=== PATIENT | male | born 1970 | race Caucasian/White ===

== ENCOUNTER → 2016-03-20 | Outpatient (CLI) | payer OTHER | END | disposition home or self-care (01) | LOC: LABWHC1 11:25 | PROVIDERS: ATTEND Psychiatry & Neurology Psychiatry | DX: F31.31 Bipolar disorder, current episode depressed, mild (principal) | CPT/HCPCS: 36415; 80164; 84450; 84460 ==

== ENCOUNTER → 2016-05-29 | Outpatient (CLI) | payer OTHER ==
--- NOTE | 2016-05-29 09:27 | MR ---
EXAMINATION TYPE: MR shoulder RT wo con DATE OF EXAM: 05/29/2016 9:15 AM COMPARISON: NONE HISTORY: rt shoulder pain TECHNIQUE: Multiplanar, multisequence imaging of the right shoulder is performed without contrast. FINDINGS: Rotator Cuff: There is diffuse abnormal signal throughout the anterior fibers of the supraspinatus te ndon extending from the musculotendinous junction to the insertion. Findings are most typical tendino sis with no definite through thickness tear. Acromioclavicular Joint: Hypertrophic change and narrowing of the AC joint. There does appear to be m ass effect and impingement upon the supraspinatus tendon and muscle. Glenohumeral Joint: Joint space appears preserved with no sizable joint effusion. Inferior glenohumer al ligament intact. Labrum: The labrum appears grossly intact given limitation of non-arthrogram study. Biceps Tendon: The long head of biceps is in normal location within bicipital groove. Bone marrow signal: Cystic change involving the head of the humerus likely reactive. Marrow changes a re seen involving the AC joint which also likely reactive and post arthritic. Other: No additional significant abnormality is appreciated. IMPRESSION: 1. Findings are compatible with diffuse tendinosis anterior fibers supraspinatus tendon with no throu gh thickness tear or retraction 2. Impingement secondary to AC joint arthropathy
== END | disposition home or self-care (01) ==
LOC: RADMRIMAIN 08:36
PROVIDERS: ATTEND Orthopaedic Surgery
DX: M12.811 Other specific arthropathies, not elsewhere classified, right shoulder (principal)

== ENCOUNTER → 2016-06-26 | Outpatient (CLI) | payer OTHER ==
[2016-06-26 17:12] LABS: Basophils % (A) 0 %; CH 31.4; CHCM 32.5; Eosinophils % (A) 0 %; HCT 38.3 % (39.0-53.0); HDW 2.13; HGB 12.5 gm/dL (13.0-17.5); Luc # (Auto) 0.13; Luc % (Auto) 2; Lymphocytes # (A) 1.9 k/uL (1.0-4.8); Lymphocytes % (A) 30 %; MCH 31.7 pg (25.0-35.0); MCHC 32.7 g/dL (31.0-37.0); MCV 96.9 fL (80.0-100.0); Mean Platelet Volume 7.2; Monocytes # (A) 0.4 k/uL (0-1.0); Monocytes % (A) 6 %; Neutrophils # (A) 4.1 k/uL (1.3-7.7); Neutrophils % (A) 62 %; RBC 3.95 m/uL (4.30-5.90); RDW 13.4 % (11.5-15.5); WBC 6.6 k/uL (3.8-10.6)
[2016-06-26 17:25] LABS: Potassium 4.4 mmol/L (3.5-5.1)
== END | disposition home or self-care (01) ==
LOC: LABPAT 16:36
PROVIDERS: ATTEND Orthopaedic Surgery
DX: Z01.812 Encounter for preprocedural laboratory examination (principal)
CPT/HCPCS: 80051; 85025

== ENCOUNTER 2016-07-03 06:02 | Day surgery (SDC) | payer OTHER ==
[2016-07-01 11:30] VITALS: BMI 23.7
--- NOTE | 2016-07-02 16:14 | HP ---
DATE OF ADMISSION: 07/03/2016 Yeison Sinha is a 45-year-old patient seen with progressive right shoulder pain. After having treatment options discussed, he elected to proceed with right shoulder arthroscopy. Consent was obtained. His past medical history is depression, osteoarthritis. PAST SURGICAL HISTORY: Noncontributory. DAILY MEDICATIONS: Depakote, Klonopin. ALLERGIES: PENICILLIN. SOCIAL HISTORY: Patient currently smokes cigarettes. PHYSICAL EVALUATION, RIGHT SHOULDER: Flexion 160 degrees. Abduction 150 degrees. External rotation is 50 degrees with pain and discomfort. Tenderness along the anterolateral acromion and rotator cuff insertion. Impingement positive 90 degrees. Positive cross-body adduction sign. Distal neurovascular exam is intact. Radiographs of the right shoulder revealed a type II anterior acromion as well as cystic changes of the tuberosity and acromioclavicular joint osteoarthritis. An MRI of the right shoulder revealed tendinosis, impingement and acromioclavicular joint osteoarthritis. IMPRESSION: Right shoulder impingement with possible rotator cuff tear and acromioclavicular joint osteoarthritis. PLAN: Right shoulder arthroscopy with subacromial decompression, possible arthroscopic rotator cuff repair, probable Mecca procedure and debridement.
[~2016-07-03 06:02] MED LIST: CLINDAMYCIN 900 MG in DEXTROSE 5% IN WATER 50 ML IVPB ONE; DEXAMETHASONE SOD PHOSPHATE 10 MG/ML 1 ML VIAL IV ONE; LACTATED RINGERS 1,000 ML IV SCH; MIDAZOLAM 2 MG/2 ML VIAL IV PRN; ONDANSETRON 4 MG/2 ML VIAL IVP ONE; SCOPOLAMINE 1.5MG/72HR PATCH TRANSDERM ONE
[2016-07-03] MEDS ORDERED: LIDOCAINE 1% 20 ML VIAL (10MG/ML) FOR IV START INTRADERMA ONE (06:52)
[2016-07-03] MEDS ORDERED: ROCURONIUM BROMIDE 10 MG/ML 10 ML VIAL IV ONE (07:28)
[2016-07-03] MEDS ORDERED: fentaNYL (PF) 50 MCG/ML 2 ML AMP ONE (07:28)
[2016-07-03] MEDS ORDERED: GLYCOPYRROLATE 0.2 MG/ML 2 ML VIAL ONE (07:28)
[2016-07-03] MEDS ORDERED: NEOSTIGMINE 1 MG/ML 10 ML VIAL ONE (07:28)
[2016-07-03] MEDS ORDERED: LIDOCAINE 1% INJ 10MG/ML (20 ML MDV) ONE (07:28)
[2016-07-03] MEDS ORDERED: SUCCINYLCHOLINE CHLORIDE 100 MG/5 ML SYR IV ONE (07:28)
[2016-07-03] MEDS ORDERED: HYDROmorphone (PF) 1 MG/ML ONE (07:28)
[2016-07-03] MEDS ORDERED: PROPOFOL 10 MG/ML 20 ML VIAL IV ONE (07:28)
[2016-07-03] MEDS ORDERED: MIDAZOLAM 2 MG/2 ML VIAL ONE (07:28)
[2016-07-03] MEDS ORDERED: BUPIVACAINE (PF) 0.5% 30 ML VIAL SQ ONE (08:05)
[2016-07-03] MEDS ORDERED: LACTATED RINGERS 1,000 ML IV ONE (09:05)
[2016-07-03 09:19] VITALS: TEMP 97.6
[2016-07-03] MEDS ORDERED: KETOROLAC 30 MG/ML 1 ML VIAL IVP ONE (09:27)
[2016-07-03] MEDS: HYDROmorphone 1 MG/ML 1 ML SYRINGE IVP PRN ×4 (09:27→09:40)
--- NOTE | 2016-07-03 09:30 | P.OP ---
Date of Procedure: 07/03/16 Preoperative Diagnosis: Right shoulder impingement Postoperative Diagnosis: 1. Right shoulder rotator cuff tear 2. Right shoulder impingement 3. Right shoulder acromioclavicular joint osteoarthritis 4. Right shoulder partial biceps tendon tear Procedure(s) Performed: 1. Right shoulder arthroscopic rotator cuff repair 2. Right shoulder arthroscopic subacromial decompression 3. Right shoulder arthroscopic Mecca procedure 4. Right shoulder arthroscopic biceps tenotomy Implants: 1-valeris 5.5 anchor Anesthesia: AZAEL, local Surgeon: Reinaldo Macias Call Specialist #1: Peter Stevens Estimated Blood Loss (ml): 10 Pathology: none sent Condition: stable Disposition: PACU Indications for Procedure: 45-year-old patient seen with progressive symptomatic right shoulder pain. After treatment options were discussed he elected to proceed with right shoulder arthroscopy. Consent was obtained. Operative Findings: See description of procedure Description of Procedure: Patient underwent a shoulder block by department of anesthesia. The patient was then taken to the operative suite. The patient underwent a general anesthetic by the department of anesthesia. The patient was placed into a lateral position and secured. There was appropriate padding of the bony prominence. Right shoulder was then prepped and draped in normal sterile orthopedic fashion. We placed the extremity in 10 pounds of longitudinal traction. A posterior incision was now made for a posterior working portal site. The trocar and cannula were inserted into the glenohumeral joint. Arthroscopy was initiated. Spinal needle was now inserted anteriorly, to ascertain the anterior working portal site. An incision was now made in that area, a trocar was inserted followed by a probe. The glenohumeral joint was stable with no osteochondral tears present. The labrum was stable with no osteochondral tears present. There was some fraying of the long head biceps tendon. An arthroscopic biceps tenotomy was performed. Instruments were now removed from glenohumeral joint. Utilizing the posterior working portal site, the trocar and cannula were inserted into the subacromial space. Arthroscopy initiated. I made an incision 2 fingerbreadths lateral to the acromion. I introduced my trocar followed by my ArthroCare ablator. I now began ablating thick subacromial bursal tissue, which exposed the undersurface of the anterior acromion. This was diminished subacromial space. There was a very prominent anterior acromion. A motorized bur was introduced and a subacromial decompression was performed. I also excised some osteophytes off the inferior aspect of the distal clavicle. The AC joint was visualized and noted to be fairly arthritic. Our motorized bur was introduced in the anterior portal site and a Mecca procedure was performed without difficulty, decompressing the AC joint nicely. I turned my attention to the rotator cuff. There was a small tear measuring about 1 cm anterior aspect distal supraspinatus. The tissue was debrided down to stable tissue. The footprint was abraded with a motorized bur. 2 everted mattress sutures were then introduced with good bites of rotator cuff tendon. I repaired the tendon back to the footprint with one single 5.5 anchor. The residual suture limbs were clipped. The repair was stable. I injected 1 mL of Allogen into the footprint/repair site without difficulty. Instruments were now removed from the portal sites. All portal sites were approximated with nylon suture. Subacromial space was infiltrated with half percent plain Marcaine. Sterile dressings were applied followed by a slingshot immobilizer. Fredy RICO assisted with the procedure. The patient was awakened, transferred to a bed, and taken to recovery in stable condition.
[2016-07-03] MEDS ORDERED: traMADol 50 MG TAB PO ONE ×2 (10:25)
[2016-07-03 11:17] VITALS: RESP 18
[2016-07-03 12:21] VITALS: BP 105/62; PULSE 60
== END 2016-07-03 12:04 | disposition home or self-care (01) ==
LOC: OR 06:02
PROVIDERS: ATTEND Orthopaedic Surgery
DX: M75.101 Unspecified rotator cuff tear or rupture of right shoulder, not specified as traumatic (principal); M75.41 Impingement syndrome of right shoulder; M19.011 Primary osteoarthritis, right shoulder; S46.111A Strain of muscle, fascia and tendon of long head of biceps, right arm, initial encounter; X58.XXXA Exposure to other specified factors, initial encounter; M25.711 Osteophyte, right shoulder
CPT/HCPCS: 29826; 29827; 29824; 20610; C1765; J2250; J1100; J2710; J2405; J2001; J3010; J1885; J1170; J0330; J2704

== ENCOUNTER 2018-02-20 11:40 | Observation (INO) | payer OTHER ==
--- NOTE | 2018-02-20 12:19 | ED ---
General Adult HPI - General Chief complaint: Neuro Symptoms/Deficit Stated complaint: Left side numbness/tingling Time Seen by Provider: 02/20/18 11:56 Source: patient, RN notes reviewed Mode of arrival: ambulatory Limitations: no limitations - History of Present Illness Initial comments: Patient is a pleasant 47-year-old male presenting to the emergency Department with left-sided arm and trunk paresthesias. Onset of symptoms was 3 days ago. Symptoms have slowly progressed since that time. Patient states his left arm may be slightly heavy. Patient did have a fall and landed on his left elbow around 1 week ago. Patient still has some discomfort of the left elbow. No headache. Patient has some mild indigestion in his chest however this is a chronic and unchanged problem. No dyspnea. No confusion. No street drugs. No leg involvement. No facial involvement. - Related Data Home Medications Medication Instructions Recorded Confirmed Albuterol Inhaler [Ventolin Hfa 1 - 2 puff INHALATION RT-Q6H PRN 07/01/16 Inhaler] Budesonide-Formot 160-4.5 Mcg 2 puff INHALATION RT-DAILY 07/01/16 02/20/18 [Symbicort 160-4.5 Mcg Inhaler] Divalproex [Depakote] 500 mg PO TID 07/01/16 02/20/18 Omeprazole 20 mg PO DAILY 07/01/16 02/20/18 clonazePAM [KlonoPIN] 1 mg PO QID 07/01/16 02/20/18 QUEtiapine [SEROquel] 25 mg PO BID 02/20/18 02/20/18 QUEtiapine [SEROquel] 100 mg PO HS 02/20/18 02/20/18 Allergies Allergy/AdvReac Type Severity Reaction Status Date / Time morphine Allergy Itching Verified 02/20/18 12:36 Penicillins Allergy Anaphylaxis Verified 02/20/18 12:36 acetaminophen [From [place]] AdvReac Unknown Verified 02/20/18 12:36 aspirin AdvReac Vomiting Verified 02/20/18 12:36 hydrocodone [From [place]] AdvReac Unknown Verified 02/20/18 12:36 ibuprofen AdvReac Unknown Verified 02/20/18 12:36 Review of Systems ROS Statement: Those systems with pertinent positive or pertinent negative responses have been documented in the HPI. ROS Other: All systems not noted in ROS Statement are negative. Constitutional: Denies: fever Eyes: Denies: eye pain ENT: Denies: ear pain Respiratory: Denies: cough, dyspnea Cardiovascular: Reports: as per HPI Endocrine: Denies: fatigue Gastrointestinal: Denies: abdominal pain Genitourinary: Denies: dysuria Musculoskeletal: Denies: back pain Skin: Denies: rash Neurological: Reports: paresthesias. Denies: headache, confusion Past Medical History Past Medical History: COPD History of Any Multi-Drug Resistant Organisms: None Reported Past Surgical History: Orthopedic Surgery Past Psychological History: Panic Disorder Smoking Status: Current every day smoker Past Alcohol Use History: Rare Past Drug Use History: Marijuana General Exam Limitations: no limitations General appearance: alert, in no apparent distress Head exam: Present: atraumatic Eye exam: Present: normal appearance, PERRL, EOMI. Absent: nystagmus ENT exam: Present: normal oropharynx Neck exam: Present: normal inspection Respiratory exam: Present: normal lung sounds bilaterally Cardiovascular Exam: Present: regular rate, normal rhythm GI/Abdominal exam: Present: soft. Absent: tenderness Extremities exam: Present: tenderness (Mild tenderness left elbow, olecranon process). Absent: pedal edema, calf tenderness Neurological exam: Present: alert, CN II-XII intact Expanded Neurological exam: Present: protecting the airway Speech: Present: fluid speech Cranial nerves: EOM's Intact: Normal, Facial Sensation: Normal Cerebellar function: Finger to Nose: Abnormal Left (Patient is off somewhat with left-sided.Test) Sensory exam: Lower Extremity Light Touch: Normal Motor strength exam: RUE: 5, LUE: 4, RLE: 5, LLE: 5 Eye Response: (4) open spontaneously Motor Response: (6) obeys commands Verbal Response: (5) oriented Psychiatric exam: Present: normal affect, normal mood Skin exam: Present: normal color Course Vital Signs 02/20/18 11:50 Temperature 98.1 F Pulse Rate 73 Respiratory 18 Rate Blood Pressure 117/77 O2 Sat by Pulse 98 Oximetry EKG Findings - EKG Comments: EKG Findings:: Normal sinus rhythm at 66. AR 194. QRS 86. QT 362. QTC 379. Left axis. Normal QRS. No acute ST change. Medical Decision Making - Medical Decision Making Patient reevaluated and updated. Case discussed with Dr. Tovar, who will admit for Dr. Contreras. - Lab Data Result diagrams: 02/20/18 12:25 02/20/18 12:25 Lab Results 02/20/18 02/20/18 02/20/18 Range/Units 12:25 12:25 12:25 WBC 9.3 (3.8-10.6) k/uL RBC 4.93 (4.30-5.90) m/uL Hgb 14.6 (13.0-17.5) gm/dL Hct 44.8 (39.0-53.0) % MCV 90.9 (80.0-100.0) fL MCH 29.6 (25.0-35.0) pg MCHC 32.5 (31.0-37.0) g/dL RDW 13.2 (11.5-15.5) % Plt Count 203 (150-450) k/uL Neutrophils % 72 % Lymphocytes % 21 % Monocytes % 5 % Eosinophils % 1 % Basophils % 1 % Neutrophils # 6.7 (1.3-7.7) k/uL Lymphocytes # 1.9 (1.0-4.8) k/uL Monocytes # 0.5 (0-1.0) k/uL Eosinophils # 0.1 (0-0.7) k/uL Basophils # 0.1 (0-0.2) k/uL PT (9.0-12.0) sec INR (<1.2) APTT (22.0-30.0) sec Sodium 141 (137-145) mmol/L Potassium 4.7 (3.5-5.1) mmol/L Chloride 109 H (98-107) mmol/L Carbon Dioxide 23 (22-30) mmol/L Anion Gap 9 mmol/L BUN 16 (9-20) mg/dL Creatinine 0.77 (0.66-1.25) mg/dL Est GFR (CKD-EPI)AfAm >90 (>60 ml/min/1.73 sqM) Est GFR (CKD-EPI)NonAf >90 (>60 ml/min/1.73 sqM) Glucose 98 (74-99) mg/dL Calcium 9.4 (8.4-10.2) mg/dL Total Bilirubin 0.4 (0.2-1.3) mg/dL AST 19 (17-59) U/L ALT 13 L (21-72) U/L Alkaline Phosphatase 63 (38-126) U/L Total Creatine Kinase 74 (55-170) U/L CK-MB (CK-2) 0.5 (0.0-2.4) ng/mL CK-MB (CK-2) Rel Index 0.7 Troponin I <0.012 (0.000-0.034) ng/mL Total Protein 7.1 (6.3-8.2) g/dL Albumin 4.3 (3.5-5.0) g/dL 02/20/18 Range/Units 12:25 WBC (3.8-10.6) k/uL RBC (4.30-5.90) m/uL Hgb (13.0-17.5) gm/dL Hct (39.0-53.0) % MCV (80.0-100.0) fL MCH (25.0-35.0) pg MCHC (31.0-37.0) g/dL RDW (11.5-15.5) % Plt Count (150-450) k/uL Neutrophils % % Lymphocytes % % Monocytes % % Eosinophils % % Basophils % % Neutrophils # (1.3-7.7) k/uL Lymphocytes # (1.0-4.8) k/uL Monocytes # (0-1.0) k/uL Eosinophils # (0-0.7) k/uL Basophils # (0-0.2) k/uL PT 10.0 (9.0-12.0) sec INR 0.9 (<1.2) APTT 26.0 (22.0-30.0) sec Sodium (137-145) mmol/L Potassium (3.5-5.1) mmol/L Chloride (98-107) mmol/L Carbon Dioxide (22-30) mmol/L Anion Gap mmol/L BUN (9-20) mg/dL Creatinine (0.66-1.25) mg/dL Est GFR (CKD-EPI)AfAm (>60 ml/min/1.73 sqM) Est GFR (CKD-EPI)NonAf (>60 ml/min/1.73 sqM) Glucose (74-99) mg/dL Calcium (8.4-10.2) mg/dL Total Bilirubin (0.2-1.3) mg/dL AST (17-59) U/L ALT (21-72) U/L Alkaline Phosphatase (38-126) U/L Total Creatine Kinase (55-170) U/L CK-MB (CK-2) (0.0-2.4) ng/mL CK-MB (CK-2) Rel Index Troponin I (0.000-0.034) ng/mL Total Protein (6.3-8.2) g/dL Albumin (3.5-5.0) g/dL - Radiology Data Radiology results: report reviewed (Computed tomography scan of the brain reveals no acute abnormality), image reviewed (Elbow x-ray and chest x-ray show no acute abnormality.) Disposition Clinical Impression: Cerebrovascular accident Disposition: ADMITTED IP TO THIS HOSP Is patient prescribed a controlled substance at d/c from ED?: No Referrals: Cesar Contreras MD [Primary Care Provider] - 1-2 days Decision Time: 14:21
[2018-02-20 12:56] LABS: Basophils # (A) 0.1 k/uL (0-0.2); Basophils % (A) 1 %; Eosinophils # (A) 0.1 k/uL (0-0.7); Eosinophils % (A) 1 %; HCT 44.8 % (39.0-53.0); HGB 14.6 gm/dL (13.0-17.5); Lymphocytes # (A) 1.9 k/uL (1.0-4.8); Lymphocytes % (A) 21 %; MCH 29.6 pg (25.0-35.0); MCHC 32.5 g/dL (31.0-37.0); MCV 90.9 fL (80.0-100.0); Monocytes # (A) 0.5 k/uL (0-1.0); Monocytes % (A) 5 %; Neutrophils # (A) 6.7 k/uL (1.3-7.7); Neutrophils % (A) 72 %; Platelet Count 203 k/uL (150-450); RBC 4.93 m/uL (4.30-5.90); RDW 13.2 % (11.5-15.5); WBC 9.3 k/uL (3.8-10.6)
[2018-02-20 13:01] LABS: INR 0.9 (<1.2)
[2018-02-20 13:12] LABS: Creatine Kinase 74 U/L (55-170)
[2018-02-20 13:14] LABS: ALT 13 U/L (21-72); AST 19 U/L (17-59); Albumin 4.3 g/dL (3.5-5.0); Alkaline Phosphatase 63 U/L (38-126); Anion Gap 9 mmol/L; Blood Urea Nitrogen 16 mg/dL (9-20); Calcium 9.4 mg/dL (8.4-10.2); Carbon Dioxide 23 mmol/L (22-30); Chloride 109 mmol/L (98-107); Glucose 98 mg/dL (74-99); Potassium 4.7 mmol/L (3.5-5.1); Sodium 141 mmol/L (137-145); Total Bilirubin 0.4 mg/dL (0.2-1.3); Total Protein 7.1 g/dL (6.3-8.2)
--- NOTE | 2018-02-20 13:21 | XR ---
EXAMINATION TYPE: XR elbow complete LT DATE OF EXAM: 02/20/2018 COMPARISON: None HISTORY: Pain left-sided numbness TECHNIQUE: Three-view left elbow FINDINGS: There is a catheter at the antecubital fossa. Radius aligns normally with the humerus. Anterior fat pad is normal. No elevation of posterior fat pa d is evident. No acute fractures are evident. Follow-up study can be performed 7-10 days from acute trauma for continued pain. IMPRESSION: 1. Normal three-view left elbow
--- NOTE | 2018-02-20 13:22 | XR ---
EXAMINATION TYPE: XR chest 2V DATE OF EXAM: 02/20/2018 COMPARISON: None INDICATION: COPD left-sided numbness TECHNIQUE: Frontal and lateral views of the chest are obtained. FINDINGS: The heart size is normal. The pulmonary vasculature is normal. The lungs are clear. IMPRESSION: 1. No acute pulmonary process.
--- NOTE | 2018-02-20 13:23 | CT ---
EXAMINATION TYPE: CT brain wo con DATE OF EXAM: 02/20/2018 COMPARISON: Prior brain MRI 06/30/2015 HISTORY: Lt sided numbness and weakness CT DLP: 1028.4 mGycm. Automated Exposure Control for Dose Reduction was Utilized. TECHNIQUE: CT scan of the head is performed without contrast. FINDINGS: There is no acute intracranial hemorrhage, mass effect, or midline shift identified. The ventricles and sulci are within normal limits in size. The globes are intact and the visualized sin uses are clear. Asymmetric appearance of the lateral ventricles is likely congenital and is stable. IMPRESSION: No acute intracranial hemorrhage, mass effect, or midline shift is seen.
[2018-02-20 13:24] LABS: Creatine Kinase MB 0.5 ng/mL (0.0-2.4); Troponin I <0.012 ng/mL (0.000-0.034)
[2018-02-20] MEDS ORDERED: ASPIRIN 325 MG TAB PO STA (14:21)
[2018-02-20] MEDS: SODIUM CHLORIDE 0.9% 1,000 ML IV SCH (15:12)
[2018-02-20] MEDS ORDERED: ALBUTEROL NEBULIZED 2.5 MG/3 ML INHALATION PRN (16:07)
[2018-02-20] MEDS ORDERED: NICOTINE 21MG/24HR PATCH TRANSDERM STA (16:23)
[2018-02-20 16:31] VITALS: RESP 16
--- NOTE | 2018-02-20 16:42 | P.HPIM ---
History of Present Illness H&P Date: 02/20/18 Chief Complaint: left arm numbness This is a 47-year-old male one of Dr. Contreras with a previous medical history significant for chronic drug use and dependence with COPD, history of the panic disorder, bipolar disorder, personality disorder mixed patient presented to the emergency department at [facility] today because of 5- day history of left arm numbness as well as heaviness including left side of the neck as well as left side of the chest and according to him he is feeling now in the groin all the way down to the left leg that started about 5 days ago, and has gotten progressively worse over the last 24 hours he ended up coming to the ER had a computed tomography scan of the brain that was negative for acute stroke however because of the presentation and because of heavy cigarette smoking he was admitted to hospital for evaluation for acute stroke, patient stated that he had a fall about a week ago on his elbow and is still having some pain in his left elbow. Patient denies any blurred vision, dysphagia, he denies any muscle twitches, had no seizure, he denies any other symptoms. Review of Systems Constitutional: Denies anorexia, Denies chills, Denies lethargy, Denies weakness Eyes: denies blurred vision, denies bulging eye, denies decreased vision Ears: deny: decreased hearing Ears, nose, mouth and throat: Denies dysphagia, Denies neck lump, Denies sore throat Cardiovascular: Denies chest pain, Denies decreased exercise tolerance, Denies dyspnea on exertion, Denies high blood pressure, Denies phlebitis, Denies rapid heart beat, Denies shortness of breath, Denies syncope Respiratory: Denies congestion, Denies cough with sputum, Denies home oxygen, Denies sleep apnea, Denies snoring, Denies wheezing Gastrointestinal: Denies abdominal pain, Denies BRBPR, Denies excessive gas, Denies melena, Denies nausea, Denies vomiting Genitourinary: Denies dysuria Musculoskeletal: Denies atrophy, Denies fractures, Denies morning stiffness, Denies prior amputations Musculoskeletal: absent: ankle pain, ankle stiffness, ankle swelling, elbow pain , elbow stiffness, elbow swelling, foot pain, foot stiffness, foot swelling, hand pain, hand stiffness, hand swelling, hip pain, hip stiffness, hip swelling , knee pain, knee stiffness, knee swelling, shoulder pain, shoulder stiffness, shoulder swelling, wrist pain, wrist stiffness, wrist swelling Integumentary: Denies pruritus, Denies rash Neurological: Reports numbness, Reports weakness Psychiatric: Reports anxiety, Denies depression, Denies memory loss, Denies mood swings, Denies paranoia, Denies sadness/tearfulness, Denies sleep disturbances, Denies suicidal ideation Endocrine: Denies fatigue, Denies weight change Past Medical History Past Medical History: COPD, GERD/Reflux, GI Bleed, Osteoarthritis (OA) Additional Past Medical History / Comment(s): 02/20/18 pt wants flu/pne vaccine while here. ulcers, insomnia. past colon polyps-pbenign, kidney stones, "tremors", "when yonger had an irreg heart beat" history of bipolar disorder, panic disorder, personality disorder. History of Any Multi-Drug Resistant Organisms: None Reported Past Surgical History: Orthopedic Surgery Additional Past Surgical History / Comment(s): egd/colonosocpy, rt shoulder sx, rt x6 arthroscopic sx, lt knee 3 arthrosocopic sx, rt hand reconstruction, bronchoscopy Past Anesthesia/Blood Transfusion Reactions: No Reported Reaction Additional Past Anesthesia/Blood Transfusion Reaction / Comment(s): clausterphobia Smoking Status: Current every day smoker (patient smoked about a pack and half a day he started when he was in his teens he denies any congestion he smokes Marijuana on a daily basis.) - Past Family History Father Family Medical History: Coronary Artery Disease (CAD) (father 65-year-old has history of CAD post [place] and permanent pacemaker placement as well as TIA.) Additional Family Medical History / Comment(s): heart problems and pacemaker/ aicd Mother Family Medical History: No Reported History (mother 65-year-old has no major medical problems.) Additional Family Medical History / Comment(s): heart problems Sister(s) Family Medical History: No Reported History (patient has one sister major medical problems.) Daughter(s) Family Medical History: No Reported History (patient has 2 daughters no major medical problems) Son(s) Family Medical History: No Reported History (patient has 2 sons no major medical problems) Medications and Allergies Home Medications Medication Instructions Recorded Confirmed Type Albuterol Inhaler [Ventolin Hfa 1 - 2 puff INHALATION RT-Q6H PRN 07/01/16 History Inhaler] Budesonide-Formot 160-4.5 Mcg 2 puff INHALATION RT-DAILY 07/01/16 02/20/18 History [Symbicort 160-4.5 Mcg Inhaler] Divalproex [Depakote] 500 mg PO TID 07/01/16 02/20/18 History Omeprazole 20 mg PO DAILY 07/01/16 02/20/18 History clonazePAM [KlonoPIN] 1 mg PO QID 07/01/16 02/20/18 History QUEtiapine [SEROquel] 25 mg PO BID 02/20/18 02/20/18 History QUEtiapine [SEROquel] 100 mg PO HS 02/20/18 02/20/18 History Allergies Allergy/AdvReac Type Severity Reaction Status Date / Time morphine Allergy Itching Verified 02/20/18 12:36 Penicillins Allergy Anaphylaxis Verified 02/20/18 12:36 acetaminophen [From [place]] AdvReac Unknown Verified 02/20/18 12:36 aspirin AdvReac Vomiting Verified 02/20/18 12:36 hydrocodone [From [place]] AdvReac Unknown Verified 02/20/18 12:36 ibuprofen AdvReac Unknown Verified 02/20/18 12:36 Physical Exam Vitals: Vital Signs Temp Pulse Resp BP Pulse Ox 02/20/18 14:00 90 18 110/72 92 L 02/20/18 13:00 87 18 110/72 96 02/20/18 11:50 98.1 F 73 18 117/77 98 Intake and Output 02/20/18 02/20/18 02/20/18 06:59 14:59 22:59 Other: Weight 74.389 kg - Constitutional General appearance: average body habitus, no acute distress - EENT Eyes: anicteric sclerae, EOMI, PERRLA, no ptosis, no scleral icterus, normal appearance ENT: hearing grossly normal, NA/AT, normal oropharynx Ears: bilateral: normal - Neck Neck: no lymphadenopathy, normal ROM, no rigidity, no stridor, no thyromegaly Carotids: bilateral: upstroke normal Thyroid: bilateral: normal size - Respiratory Respiratory: bilateral: diminished, prolonged expiration, negative: dullness, rales, rhonchi, wheezing - Cardiovascular Rhythm: regular Heart sounds: normal: S1, S2 Abnormal Heart Sounds: no systolic murmur, no S3 Gallop, no S4 Gallop - Gastrointestinal General gastrointestinal: normal bowel sounds, soft, no splenomegaly, no tenderness, no umbilical hernia, no ventral hernia - Integumentary Integumentary: normal, normal turgor - Neurologic Neurologic: CNII-XII intact, focal deficits (mild [id number] sign in the left along with mild left pronator drift.) - Psychiatric Psychiatric: A&O x's 3, appropriate affect, intact judgment & insight Results CBC & Chem 7: 02/20/18 12:25 02/20/18 12:25 Labs: Abnormal Lab Results - Last 24 Hours (Table) 02/20/18 Range/Units 12:25 Chloride 109 H (98-107) mmol/L ALT 13 L (21-72) U/L Thrombosis Risk Factor Assmnt - DVT/VTE Prophylaxis DVT/VTE Prophylaxis: Pharmacologic Prophylaxis ordered, Mechanical Prophylaxis ordered Assessment and Plan Assessment: Assessment and plan: 1. Left upper extremity numbness and mild weakness suggestive of possible ischemic CVA. Rule out radial traumatic neuropathy, rule out cervical spine myelopathy. Due to recent fall. I would continue the patient on aspirin 325 mg orally once every day, ultrasound of the carotids, echocadiogram, neuro check every 2 hours for the next 24 hours, we will obtain MRI of the brain with and without gadolinium, neurology consultation. Patient will need to have a cervical spine x-ray and possible CT of the cervical spine for further evaluation. 2. Chronic tobacco use and dependence. Smoking cessation and counseling an increased risk of CVA, CAD and malignancy. Start the patient on nicotine patch. 3. COPD. Continue patient on albuterol 2 puffs inhalation every 4 hours as needed, continue Symbicort 160/4.5 g 2 puffs inhalation twice every day. 4. GERD. Continue patient on omeprazole 20 mg orally once every day. 5. Anxiety and panic disorder with personality disorder and bipolar disorder. Continue patient on Klonopin 1 mg orally 4 times every day, continue Depakote 500 mg orally twice every day, continue with Seroquel 25 mg twice every day and 100 g of the time. 6. DVT prophylaxis. Bilateral knee-high STANLEY hose. 7. GI prophylaxis. Continue patient on PPI. 8. Admit to inpatient. Estimated length of stay 2 midnights. 9. Patient is full code.
--- NOTE | 2018-02-20 17:25 | ECHOF ---
Referral Reason:Thrombus MEASUREMENTS -------- HEIGHT: 182.9 cm WEIGHT: 74.4 kg BP: 117/77 RVIDd: 2.5 cm (< 3.3) IVSd: 1.1 cm (0.6 - 1.1) LVIDd: 4.4 cm (3.9 - 5.3) LVPWd: 1.1 cm (0.6 - 1.1) IVSs: 1.5 cm LVIDs: 3.2 cm LVPWs: 1.6 cm LA Diam: 3.4 cm (2.7 - 3.8) LAESV Index (A-L): 26.89 ml/m Ao Diam: 3.2 cm (2.0 - 3.7) AV Cusp: 2.5 cm (1.5 - 2.6) EPSS: 0.2 cm MV E Ehsan: 0.70 m/s MV DecT: 236 ms MV A Ehsan: 0.39 m/s MV E/A Ratio: 1.81 RAP: 5.00 mmHg RVSP: 23.03 mmHg MV EF SLOPE: 180.43 mm/s (70 - 150) MV EXCURSION: 2.47 cm (> 18.000) FINDINGS -------- Sinus rhythm. This was a technically good study. The left ventricular size is normal. There is borderline concentric left ventricular hypertrophy. Overall left ventricular systolic function is normal with, an EF between 55 - 60 %. The right ventricle is normal in size. Normal LA size by volume 22+/-6 ml/m2. The right atrial size is normal. The aortic valve is trileaflet, and appears structurally normal. No aortic stenosis or regurgitation. The mitral valve is normal. There is trace to mild mitral regurgitation. Mild tricuspid regurgitation present. Right ventricular systolic pressure is normal at < 35 mmHg. The right ventricular systolic pressure, as measured by Doppler, is 23.03mmHg. There is no pulmonic regurgitation present. The aortic root size is normal. Normal inferior vena cava with normal inspiratory collapse consistent with estimated right atrial pre ssure of 5 mmHg. There is no pericardial effusion. CONCLUSIONS -------- 1. Sinus rhythm. 2. This was a technically good study. 3. The left ventricular size is normal. 4. There is borderline concentric left ventricular hypertrophy. 5. Overall left ventricular systolic function is normal with, an EF between 55 - 60 %. 6. Normal LA size by volume 22+/-6 ml/m2. 7. The aortic valve is trileaflet, and appears structurally normal. No aortic stenosis or regurgitati on. 8. There is trace to mild mitral regurgitation. 9. Mild tricuspid regurgitation present. 10. Right ventricular systolic pressure is normal at < 35 mmHg. 11. There is no pulmonic regurgitation present. 12. The aortic root size is normal. 13. Normal inferior vena cava with normal inspiratory collapse consistent with estimated right atrial pressure of 5 mmHg. 14. There is no pericardial effusion. [employer]: PATRICE Velázquez
[2018-02-20] MEDS: clonazePAM 1 MG TAB PO SCH ×2 (17:55→20:34)
[2018-02-20] MEDS: QUEtiapine 100 MG TAB PO SCH (20:34)
[2018-02-20] MEDS: QUEtiapine 25 MG TAB PO SCH (20:34)
[2018-02-20] MEDS: DIVALPROEX 500 MG TABLET.DR PO SCH (20:35)
[2018-02-20] MEDS: LORazepam 2 MG/ML INJ IV PRN (21:03)
--- NOTE | 2018-02-20 22:30 | MR ---
EXAMINATION TYPE: MR brain wo/w con DATE OF EXAM: 02/20/2018 COMPARISON: 06/30/2015 HISTORY: Left sided numbness and weakness, gadavist 7.5 TECHNIQUE: Multiplanar, multisequence images of the brain and brainstem is performed without and with IV contras t, utilizing 7.5 mL intravenous Gadavist . FINDINGS: There is a 5 mm focus of increased signal at the denny-white matter junction left anterior p arietal lobe on the T2 and FLAIR images. I see no evidence of a cortical infarct. The brainstem is in tact. There is no mass effect nor midline shift. There is no sign of intracranial hemorrhage. The cor pus callosum appears fairly normal. Sella turcica appears normal. There is no pathologic enhancement. There is normal contrast opacification of the venous sinuses. IMPRESSION: Single left parietal white matter high signal focus is increased compared to last MR scan . Otherwise negative exam. No evidence of cortical infarct.
[2018-02-21] MEDS: LORazepam 2 MG/ML INJ IV PRN (02:30)
[2018-02-21] MEDS: SODIUM CHLORIDE 0.9% 1,000 ML IV SCH ×4 (04:30→23:21)
[2018-02-21 06:39] LABS: Basophils # (A) 0.1 k/uL (0-0.2); Basophils % (A) 1 %; Eosinophils # (A) 0.1 k/uL (0-0.7); Eosinophils % (A) 1 %; HCT 41.2 % (39.0-53.0); Lymphocytes # (A) 3.2 k/uL (1.0-4.8); Lymphocytes % (A) 47 %; MCH 28.8 pg (25.0-35.0); MCHC 31.4 g/dL (31.0-37.0); MCV 91.6 fL (80.0-100.0); Mean Platelet Volume 7.6; Monocytes # (A) 0.4 k/uL (0-1.0); Monocytes % (A) 5 %; Neutrophils # (A) 2.9 k/uL (1.3-7.7); Neutrophils % (A) 43 %; Platelet Count 189 k/uL (150-450); RDW 13.1 % (11.5-15.5); WBC 6.8 k/uL (3.8-10.6)
[2018-02-21] MEDS: PANTOPRAZOLE 40 MG TABLET PO SCH (06:46)
[2018-02-21 06:54] LABS: ALT 19 U/L (21-72); AST 14 U/L (17-59); Albumin 3.6 g/dL (3.5-5.0); Alkaline Phosphatase 70 U/L (38-126); Anion Gap 8 mmol/L; Blood Urea Nitrogen 18 mg/dL (9-20); Calcium 8.6 mg/dL (8.4-10.2); Carbon Dioxide 22 mmol/L (22-30); Chloride 110 mmol/L (98-107); Cholesterol 149 mg/dL (<200); HDL Cholesterol 42 mg/dL (40-60); LDL Cholesterol,Calculated 92 mg/dL (0-99); Potassium 4.4 mmol/L (3.5-5.1); Sodium 140 mmol/L (137-145); Total Bilirubin 0.2 mg/dL (0.2-1.3); Total Protein 6.1 g/dL (6.3-8.2); Triglycerides 76 mg/dL (<150)
[2018-02-21 07:10] LABS: Glucose 93 mg/dL (74-99)
[2018-02-21] MEDS: QUEtiapine 25 MG TAB PO SCH (08:12)
[2018-02-21] MEDS: ASPIRIN 325 MG TAB PO SCH (08:12)
[2018-02-21] MEDS: NICOTINE 21MG/24HR PATCH TRANSDERM SCH (08:12)
[2018-02-21] MEDS: clonazePAM 1 MG TAB PO SCH ×4 (08:12→20:10)
[2018-02-21] MEDS: DIVALPROEX 500 MG TABLET.DR PO SCH ×3 (08:12→20:10)
--- NOTE | 2018-02-21 09:29 | US ---
EXAMINATION TYPE: US carotid duplex BILAT DATE OF EXAM: 02/21/2018 COMPARISON: NONE CLINICAL HISTORY: Stenosis. EXAM MEASUREMENTS: RIGHT: Peak Systolic Velocity (PSV) cm/sec ----- Right CCA: 100.2 ----- Right ICA: 79.8 ----- Right ECA: 113.2 ICA/CCA ratio: 0.8 RIGHT: End Diastole cm/sec ----- Right CCA: 27.5 ----- Right ICA: 27.5 ----- Right ECA: 30.4 LEFT: Peak Systolic Velocity (PSV) cm/sec ----- Left CCA: 99.5 ----- Left ICA: 98.4 ----- Left ECA: 100.0 ICA/CCA ratio: 1.0 LEFT: End Diastole cm/sec ----- Left CCA: 26.8 ----- Left ICA: 16.0 ----- Left ECA: 27.3 VERTEBRALS (direction of flow): Right Vertebral: Antegrade Left Vertebral: Antegrade Rhythm: Normal No elevated velocities. Mild atherosclerotic changes bilaterally. IMPRESSION: I DO NOT SEE EVIDENCE OF A HEMODYNAMICALLY SIGNIFICANT STENOSIS IN EITHER CAROTID SYSTEM. Criteria for Assigning % of Stenosis / Diameter reduction (Estimation based on the indirect measurements of the internal carotid artery velocities (ICA PSV). 1. Normal (no stenosis)=ICA PSV < 125 cm/s: ratio < 2.0: ICA EDV<40 cm/s. 2. Less than 50% stenosis=ICA PSV < 125 cm/s: ratio < 2.0: ICA EDV<40 cm/s. 3. 50 to 69% stenosis=ICA PSV of 125 to 230 cm/s: ration 2.0 ? 4.0: ICA EDV 40-100 cm/s. 4. Greater than 70% stenosis to near occlusion= ICA PSV > 230 cm/s: ratio > 4.0: ICA EDV > 100 cm/s. 5. Near occlusion= ICA PSV velocities may be low or undetectable: variable ratio and ICA EDV. 6. Total occlusion=unable to detect flow.
[2018-02-21] MEDS: SYMBICORT 160-4.5 MCG INHALER INHALATION SCH (09:30)
--- NOTE | 2018-02-21 14:53 | P.CONS ---
History of Present Illness - Reason for Consult Consult date: 02/21/18 Left-sided numbness - Chief Complaint Left-sided numbness - History of Present Illness This 47-year-old male being evaluated by the neurology service for left-sided numbness. He came to the [facility] emergency room with a 5 day history of progressive left-sided numbness starting with his left arm and face. He progressed to the chest and left leg. Initial CT of the brain showed no acute intracranial abnormalities. MRI of the brain showed no acute intracranial abnormalities. It did show 1 single white matter lesion in the left parietal area which would not can attribute to his symptoms. Of note the white matter lesion seem to have increased in size from on MRI 2 years ago. Carotid Doppler showed no hemodynamically significant stenosis. He denies recent trauma or illness. It's time my exam he is resting comfortably in bed in no acute distress. Review of Systems All systems: negative Constitutional: Reports as per HPI Past Medical History Past Medical History: COPD, GERD/Reflux, GI Bleed, Osteoarthritis (OA) Additional Past Medical History / Comment(s): 02/20/18 pt wants flu/pne vaccine while here. ulcers, insomnia. past colon polyps-pbenign, kidney stones, "tremors", "when yonger had an irreg heart beat" history of bipolar disorder, panic disorder, personality disorder. History of Any Multi-Drug Resistant Organisms: None Reported Past Surgical History: Orthopedic Surgery Additional Past Surgical History / Comment(s): egd/colonosocpy, rt shoulder sx, rt x6 arthroscopic sx, lt knee 3 arthrosocopic sx, rt hand reconstruction, bronchoscopy Past Anesthesia/Blood Transfusion Reactions: No Reported Reaction Additional Past Anesthesia/Blood Transfusion Reaction / Comm: clausterphobia Smoking Status: Current every day smoker (patient smoked about a pack and half a day he started when he was in his teens he denies any congestion he smokes Marijuana on a daily basis.) - Past Family History Father Family Medical History: Coronary Artery Disease (CAD) (father 65-year-old has history of CAD post NM and permanent pacemaker placement as well as TIA.) Additional Family Medical History / Comment(s): heart problems and pacemaker/ aicd Mother Family Medical History: No Reported History (mother 65-year-old has no major medical problems.) Additional Family Medical History / Comment(s): heart problems Sister(s) Family Medical History: No Reported History (patient has one sister major medical problems.) Daughter(s) Family Medical History: No Reported History (patient has 2 daughters no major medical problems) Son(s) Family Medical History: No Reported History (patient has 2 sons no major medical problems) Medications and Allergies Home Medications Medication Instructions Recorded Confirmed Type Albuterol Inhaler [Ventolin Hfa 1 - 2 puff INHALATION RT-Q6H PRN 07/01/16 History Inhaler] Budesonide-Formot 160-4.5 Mcg 2 puff INHALATION RT-DAILY 07/01/16 02/20/18 History [Symbicort 160-4.5 Mcg Inhaler] Divalproex [Depakote] 500 mg PO TID 07/01/16 02/20/18 History Omeprazole 20 mg PO DAILY 07/01/16 02/20/18 History clonazePAM [KlonoPIN] 1 mg PO QID 07/01/16 02/20/18 History QUEtiapine [SEROquel] 25 mg PO BID 02/20/18 02/20/18 History QUEtiapine [SEROquel] 100 mg PO HS 02/20/18 02/20/18 History Allergies Allergy/AdvReac Type Severity Reaction Status Date / Time morphine Allergy Itching Verified 02/20/18 12:36 Penicillins Allergy Anaphylaxis Verified 02/20/18 12:36 acetaminophen [From [place]] AdvReac Unknown Verified 02/20/18 12:36 aspirin AdvReac Vomiting Verified 02/20/18 12:36 hydrocodone [From [place]] AdvReac Unknown Verified 02/20/18 12:36 ibuprofen AdvReac Unknown Verified 02/20/18 12:36 Physical Exam Vitals: Vital Signs Temp Pulse Resp BP Pulse Ox 02/21/18 12:00 98.2 F 63 16 110/71 97 02/21/18 08:00 68 16 02/21/18 07:59 97.6 F 68 16 107/68 95 02/21/18 04:00 98.4 F 90 16 111/59 96 02/21/18 00:00 97.4 F L 78 15 122/71 98 02/20/18 20:00 97.4 F L 68 16 107/56 96 02/20/18 16:00 98 F 57 L 16 104/70 99 Intake and Output 02/20/18 02/21/18 02/21/18 22:59 06:59 14:59 Intake Total 1310 800 260 Balance 1310 800 260 Intake: Intake, IV Titration 350 800 Amount Sodium Chloride 0.9% 1, 350 800 000 ml @ 100 mls/hr IV . Q10H GENEVA Rx#:[id number] Oral 960 260 Other: # Voids 2 Weight 74.3 kg - Constitutional General appearance: average body habitus, cooperative, no acute distress - EENT Eyes: no abnormal pupil, EOMI, PERRLA, no ptosis ENT: hearing grossly normal - Neck Neck: normal ROM, no rigidity - Respiratory Respiratory: negative: prolonged expiration, prolonged inspiration - Cardiovascular Rhythm: regular - Gastrointestinal General gastrointestinal: no distended, no tenderness - Neurologic The patient is alert awake and oriented 3. Speech and language are normal. There is no facial asymmetry. Strength is 5 out of 5 in bilateral upper and lower extremities. Slightly diminished sensation to touch on the entire left side. No tremors or seizures are seen. Cranial nerves II through XII are intact globally. No dysmetria or dysdiadochokinesia Results CBC & Chem 7: 02/21/18 05:38 02/21/18 05:38 Labs: Abnormal Lab Results - Last 24 Hours (Table) 02/21/18 Range/Units 05:38 Chloride 110 H (98-107) mmol/L AST 14 L (17-59) U/L ALT 19 L (21-72) U/L Total Protein 6.1 L (6.3-8.2) g/dL Assessment and Plan (1) White matter changes Current Visit: Yes Status: Chronic Code(s): CUL8799 - SNOMED Code(s): 588372001 (2) Left sided numbness Current Visit: Yes Status: Acute Code(s): R20.0 - ANESTHESIA OF SKIN SNOMED Code(s): 10625670 (3) Asthma Current Visit: Yes Status: Chronic Code(s): J45.909 - UNSPECIFIED ASTHMA, UNCOMPLICATED SNOMED Code(s): 697285268 (4) Bipolar disorder Current Visit: Yes Status: Chronic Code(s): F31.9 - BIPOLAR DISORDER, UNSPECIFIED SNOMED Code(s): 09985204 Plan: The patient's left-sided sensory deficits are suspect for a possible central demyelinating process. MRI of the cervical spine has been ordered, we would prefer this with without contrast. However, he has had contrast within the last 24 hours so initial study will be performed without contrast. He has been started on IV Solu-Medrol. We will see if this helps his sensory deficit. Continue neurological checks. We will continue to follow. Recommend physical and occupational therapy follow. I have performed a history and physical on the above patient. I have reviewed the above note, and agree.
[2018-02-21] MEDS: methylPREDNISolone SOD SUCCI 125 MG/2 ML VIAL IV SCH ×2 (15:00→23:27)
[2018-02-21] MEDS: QUEtiapine 100 MG TAB PO SCH (15:43)
[2018-02-21 16:26] LABS: Glucose,Whole Blood 118 mg/dL (75-99)
[2018-02-21] MEDS: INSULIN ASPART 100 UNIT/ML 1 ML 10 ML VIAL SQ SCH ×2 (17:07→22:28)
[2018-02-21] MEDS ORDERED: MELATONIN 5 MG TABLET PO SCH (21:00)
[2018-02-21] MEDS ORDERED: QUEtiapine 50 MG TAB PO ONE (21:00)
[2018-02-21 21:51] LABS: Glucose,Whole Blood 150 mg/dL (75-99)
--- NOTE | 2018-02-21 23:08 | P.PN ---
Subjective Progress Note Date: 02/21/18 This is a 47-year-old male one of Dr. Contreras with a previous medical history significant for chronic drug use and dependence with COPD, history of the panic disorder, bipolar disorder, personality disorder mixed patient presented to the emergency department at [facility] today because of 5- day history of left arm numbness as well as heaviness including left side of the neck as well as left side of the chest and according to him he is feeling now in the groin all the way down to the left leg that started about 5 days ago, and has gotten progressively worse over the last 24 hours he ended up coming to the ER had a computed tomography scan of the brain that was negative for acute stroke however because of the presentation and because of heavy cigarette smoking he was admitted to hospital for evaluation for acute stroke, patient stated that he had a fall about a week ago on his elbow and is still having some pain in his left elbow. Patient denies any blurred vision, dysphagia, he denies any muscle twitches, had no seizure, he denies any other symptoms. 1215 pseen by Neurology today and request cervical MRI imaging as well. SOlumedrol was recommended by neurology and was started at 60mg q8 hrs instead of the routine higher doses for cervical myelopathy. Patient was voicing concerns on depression and suicidal ideations without active suicidal intent or plans, he was seeing dr Culver and requested to be seen by him, as he was last seen by him over 5 mos ago.I have consulted dr Culver psychiatry. he also refused a safety and occupational health manager which I had advocated for his safety till cleared by Psychiatry. patient was very upset about this recommendation and demanded AMA discharge. I have spoken to dr Culver and he still recommended the safety and occupational health manager at bedside till he has to evaluate him in the morning. patient requested to decrease his seroquel or discontinue his seroquel dose tonight which i agreed to only change the dose to 50mg for tonight. his thoughts with irrational behavior cannot be predicted with his underlying mood disorder and chronic drug use history, patient is high risk especially with the concurrent use of solumedrol. patient request a change in attending physician for which i am respectfully oblige Objective - Vital Signs Vital signs: Vital Signs Temp 98.2 F 02/21/18 12:00 Pulse 63 02/21/18 12:00 Resp 16 02/21/18 12:00 BP 110/71 02/21/18 12:00 Pulse Ox 97 02/21/18 12:00 Intake & Output 02/20/18 02/21/18 02/21/18 18:59 06:59 18:59 Intake Total 2110 260 Balance 2110 260 Weight 74.389 kg 74.3 kg Intake: Intake, IV Titration 1150 Amount Sodium Chloride 0.9% 1, 1150 000 ml @ 100 mls/hr IV . Q10H GENEVA Rx#:[id number] Oral 960 260 Other: # Voids 2 - Labs CBC & Chem 7: 02/21/18 05:38 02/21/18 05:38 Labs: Abnormal Lab Results - Last 24 Hours (Table) 02/21/18 Range/Units 05:38 Chloride 110 H (98-107) mmol/L AST 14 L (17-59) U/L ALT 19 L (21-72) U/L Total Protein 6.1 L (6.3-8.2) g/dL Assessment and Plan Plan: 1. Left upper extremity numbness and mild weakness suggestive of possible ischemic CVA. Rule out radial traumatic neuropathy, rule out cervical spine myelopathy. Due to recent fall. I would continue the patient on aspirin 325 mg orally once every day, ultrasound of the carotids, echocadiogram, neuro check every 2 hours for the next 24 hours, we will obtain MRI of the brain with and without gadolinium, neurology consultation. Patient will need to have a cervical MRI to eval for cervical radiculopathy possible early myelopathy solumedrol 60 mg Q8 hrs 2. Chronic tobacco use and dependence hx of chronic drug dependence. Smoking cessation and counseling an increased risk of CVA, CAD and malignancy. Start the patient on nicotine patch. 3. COPD. Continue patient on albuterol 2 puffs inhalation every 4 hours as needed, continue Symbicort 160/4.5 g 2 puffs inhalation twice every day. 4. GERD. Continue patient on omeprazole 20 mg orally once every day. 5. Anxiety and panic disorder with personality disorder and bipolar disorder. Continue patient on Klonopin 1 mg orally 4 times every day, continue Depakote 500 mg orally twice every day, continue with Seroquel 25 mg twice every day bf and lunch 100 g of the nightime. 6. Suicidal ideation and depression without intent or plans. consult psychiatry , safety and occupational health manager at bediside till cleared by psychiatry., caution to be made while on solumedrol. if behavior will deteriorate this medication needs to be discontinued. 6. DVT prophylaxis. Bilateral knee-high STANLEY hose. 7. GI prophylaxis. Continue patient on PPI. 8. Admit to inpatient. Estimated length of stay 2 midnights.
[2018-02-22 05:55] LABS: Glucose,Whole Blood 183 mg/dL (75-99)
[2018-02-22] MEDS: INSULIN ASPART 100 UNIT/ML 1 ML 10 ML VIAL SQ SCH ×2 (06:36→11:41)
[2018-02-22] MEDS: NICOTINE 21MG/24HR PATCH TRANSDERM SCH (06:37)
[2018-02-22] MEDS: PANTOPRAZOLE 40 MG TABLET PO SCH (06:38)
[2018-02-22] MEDS: SODIUM CHLORIDE 0.9% 1,000 ML IV SCH (06:38)
[2018-02-22] MEDS ORDERED: QUEtiapine 25 MG TAB PO SCH ×2 (07:30→21:00)
[2018-02-22] MEDS: SYMBICORT 160-4.5 MCG INHALER INHALATION SCH (07:31)
[2018-02-22] MEDS: clonazePAM 1 MG TAB PO SCH (08:07)
[2018-02-22] MEDS: methylPREDNISolone SOD SUCCI 125 MG/2 ML VIAL IV SCH ×2 (08:07→15:54)
[2018-02-22] MEDS: ASPIRIN 325 MG TAB PO SCH (08:07)
[2018-02-22] MEDS: DIVALPROEX 500 MG TABLET.DR PO SCH (08:07)
[2018-02-22 11:06] LABS: Glucose,Whole Blood 109 mg/dL (75-99)
--- NOTE | 2018-02-22 11:56 | P.PN ---
Subjective Progress Note Date: 02/22/18 Principal diagnosis: Left-sided numbness This 47-year-old male continue be evaluated by the neurology service for left-sided numbness. Has about a 5-6 day history of progressive left-sided numbness starting in his upper extremity and neck and progressing to his left lower extremity. Initial CT of the brain showed no acute intracranial abnormalities. MRI of the brain was also normal. It did show one single white matter lesion of the left parietal area. Small amount be consistent with any of his symptoms today. Carotid Doppler showed no hemodynamically significant stenosis. We were concerned about possible cervical etiology of some type her symptoms. An MRI of the cervical spine with and without contrast has been ordered. He has been on IV Solu-Medrol yesterday he has received 3 doses then he says his symptoms are slowly resolving starting with the feet and the hands. He has no new neurological symptoms. Objective - Vital Signs Vital signs: Vital Signs Temp 97.7 F 02/22/18 08:00 Pulse 103 H 02/22/18 08:00 Resp 16 02/22/18 08:00 BP 134/74 02/22/18 08:00 Pulse Ox 95 02/22/18 08:00 Intake & Output 02/21/18 02/22/18 02/22/18 18:59 06:59 18:59 Intake Total 2000 1760 1040 Output Total 900 Balance 1100 1760 1040 Weight 74.3 kg Intake: IV 900 800 800 Sodium Chloride 0.9% 1, 900 800 800 000 ml @ 100 mls/hr IV . Q10H [facility]EVA Rx#:[id number] Oral 1100 960 240 Output: Urine 900 Other: # Voids 2 5 - Constitutional General appearance: Present: average body habitus, cooperative, no acute distress - EENT Eyes: Present: EOMI, PERRLA. Absent: abnormal pupil, ptosis ENT: Present: hearing grossly normal - Neck Neck: Present: normal ROM. Absent: rigidity - Respiratory Respiratory: negative: prolonged expiration, prolonged inspiration - Cardiovascular Rhythm: regular - Gastrointestinal General gastrointestinal: Absent: distended, tenderness - Neurologic Neurologic Comment(s): The patient is alert awake and oriented 3. Speech and language are normal. There is no facial asymmetry. Strength is 5 out of 5 in bilateral upper and lower extremities. There continues to be sensory deficit of the left proximal upper and lower extremity. No tremors or seizures are seen. Cranial nerves II through XII are intact globally. - Labs CBC & Chem 7: 02/21/18 05:38 02/21/18 05:38 Labs: Abnormal Lab Results - Last 24 Hours (Table) 02/21/18 02/21/18 02/22/18 Range/Units 16:23 21:47 05:53 POC Glucose (mg/dL) 118 H 150 H 183 H (75-99) mg/dL 02/22/18 Range/Units 11:05 POC Glucose (mg/dL) 109 H (75-99) mg/dL Assessment and Plan (1) White matter changes Current Visit: Yes Status: Chronic Code(s): [id number] - SNOMED Code(s): 755439046 (2) Left sided numbness Current Visit: Yes Status: Acute Code(s): R20.0 - ANESTHESIA OF SKIN SNOMED Code(s): 00702731 (3) Asthma Current Visit: Yes Status: Chronic Code(s): J45.909 - UNSPECIFIED ASTHMA, UNCOMPLICATED SNOMED Code(s): 947444267 (4) Bipolar disorder Current Visit: Yes Status: Chronic Code(s): F31.9 - BIPOLAR DISORDER, UNSPECIFIED SNOMED Code(s): 82796915 Plan: The patient's left-sided sensory deficits are suspect for a possible central demyelinating process. MRI of the cervical spine has been ordered with without contrast. He has been started on IV Solu-Medrol. This is helping his sensory deficit. Continue neurological checks. We will continue to follow. Recommend physical and occupational therapy follow. I have performed a history and physical on the above patient. I have reviewed the above note, and agree.
--- NOTE | 2018-02-22 12:05 | P.CN ---
Psychiatric Consult - . Consult date: 02/22/18 Consult:: 02/22/18 11:57 IDENTIFYING DATA: 47-year-old male patient HPI: Patient admitted to the medical floor [facility] with complaints of the whole Body felt numb. He states that they've ruled out stroke and is felt that it's related to nerve damage. Psychiatry is counseled regarding concerns regarding suicidal ideations. A sitter was placed yesterday. Patient states that last time he had a thought of suicide was approximately 2 weeks ago. He describes a history of some on and off suicidal ideations but relays that is not a viable option. The patient is known to me from the outpatient office. He has not been seen in approximately 5 months in the office because he states he lost his insurance but he just found out that he has another insurance. He states that his claim was denied Social Security. He makes reference to looking at appealing that. So recently he has been off his Seroquel and Depakote and Klonopin for multiple months. Receiving the medications again here he does describe some increased tiredness. Patient states when he was off his medications he was secluding himself. His medication regimen was beneficial for him. He describes his mood lately is having some ups and downs. PAST PSYCHIATRIC HISTORY: Patient has had 3 inpatient psychiatric admissions. History of bipolar disorder. He has never had any actual suicide attempts. PMH: COPD, gastroesophageal reflux disease, GI bleed, osteoarthritis, ulcers, kidney stone, ALLERGIES: Morphine, penicillins, acetaminophen, aspirin, hydrocodone, ibuprofen MEDICATIONS: Ventolin when necessary, aspirin, Symbicort, Klonopin, Depakote, NovoLog, Ativan when necessary, melatonin, Solu-Medrol, Habitrol patch, Protonix , Seroquel CHEMICAL DEPENDENCY HISTORY: Patient has been using some marijuana FAMILY PSYCHIATRIC HISTORY: Unknown at this time FAMILY CHEMICAL DEPENDENCY HISTORY: None known at this time SOCIAL HISTORY: Patient describes that his girlfriend and brother had been to visit. He states that his relationship lately has been up and down. MENTAL STATUS EXAM: He is alert and cooperative with the interview. His speech is fluent, not rapid or pressured. Thought processes organized. He denies any thoughts of suicide. He reports he feels safe here in the hospital. He describes his mood as "okay." He is not showing evidence of psychosis or agitation. Cognitively appears to be grossly intact. IMPRESSIONS: Bipolar disorder; unspecified anxiety disorder PLAN: At this time I will reduce the dosages of his psychiatric medications as he has been off of them for multiple months. We'll dose Depakote for mood stabilization 500 mg twice a day, we'll check a Depakote level. Will reduce Seroquel currently to 25 mg twice a day which can assist with mood stabilization. Klonopin will be dosed at 0.5 mg 3 times a day for anxiety. He has a history of responding in a positive fashion to the psychotropic medication regimen. He is encouraged to contact the office regarding getting appointments with myself for medication management [place] for outpatient counseling. I do not see any criteria for inpatient psychiatric hospitalization.
[2018-02-22] MEDS ORDERED: metroNIDAZOLE-NS PMX 500 MG in SALINE 1 100ML.BAG IVPB SCH (12:11)
--- NOTE | 2018-02-22 14:11 | P.PN ---
Subjective Progress Note Date: 02/22/18 Patient was seen by me today for follow-up. He requested to have a new provider in the hospital as he was upset with his prior provider when she told him that he will require ''a curtain framer'' at bedside. This is a 47-year-old male with past medical history significant for bipolar disorder who presented to the hospital with nonspecific complain of numbness and heaviness involving the left side of his body. Patient was evaluated in the emergency room a computed tomography scan of the brain showed no acute findings. Patient was admitted to the hospital for stroke workup. He was seen and evaluated by neurology. MRI of the brain was unremarkable with some nonspecific white matter changes. Patient is currently waiting for an MRI thoracic and lumbar spine ordered by neurology to be done tomorrow. He was started on IV Solu-Medrol empirically which he reports that is helping with his symptoms. Most of his symptoms are subjective. Patient is telling me that he is doing fairly well today. He was seen and evaluated by psychiatry earlier. He denies any suicidal thoughts or ideation. He denies being depressed. No acute events overnight reported by nursing staff. Objective - Vital Signs Vital signs: Vital Signs Temp 97.0 F L 02/22/18 12:00 Pulse 86 02/22/18 12:00 Resp 16 02/22/18 12:00 BP 130/80 02/22/18 12:00 Pulse Ox 96 02/22/18 12:00 Intake & Output 02/21/18 02/22/18 02/22/18 18:59 06:59 18:59 Intake Total 2000 1760 1440 Output Total 900 Balance 1100 1760 1440 Weight 74.3 kg Intake: IV 900 800 800 Sodium Chloride 0.9% 1, 900 800 800 000 ml @ 100 mls/hr IV . Q10H GENEVA Rx#:[id number] Oral 1100 960 640 Output: Urine 900 Other: # Voids 2 5 - Exam General: The patient is awake and alert, in no distress Eye: there is normal conjunctiva bilaterally. Neck: The neck is supple, there is no JVD. Cardiovascular: Normal S1-S2, no S3-S4, no murmurs. Respiratory: Lungs clear to auscultation bilaterally Gastrointestinal: Abdomen is soft, nontender Musculoskeletal: There is no pedal edema. Neurological:. Speech is normal. Skin: Skin is warm and dry - Labs CBC & Chem 7: 02/21/18 05:38 02/21/18 05:38 Labs: Abnormal Lab Results - Last 24 Hours (Table) 02/21/18 02/21/18 02/22/18 Range/Units 16:23 21:47 05:53 POC Glucose (mg/dL) 118 H 150 H 183 H (75-99) mg/dL 02/22/18 Range/Units 11:05 POC Glucose (mg/dL) 109 H (75-99) mg/dL Assessment and Plan Assessment: 1. Numbness involving left side of the body mostly in the left shoulder and arm area: Patient was seen and evaluated by neurology. Computed tomography scan of the brain and MRI were essentially normal. There was a single left parietal white matter high signal focus noted on MRI of the brain. Neurology would like to exclude a central demyelinating process. MRI of the cervical spine ordered for tomorrow. Patient was started on IV Solu-Medrol empirically by neurology 2. Underlying bipolar disorder, seen and evaluated by psychiatry. His medication doses were adjusted and Depakote level ordered. 3. GI and DVT prophylaxis with Protonix and subcu heparin
[2018-02-22] MEDS ORDERED: clonazePAM 0.5 MG TAB PO SCH (16:00)
[2018-02-22 16:30] VITALS: BP 145/86; PULSE 69; TEMP 98
[2018-02-22 16:32] LABS: Glucose,Whole Blood 107 mg/dL (75-99)
[2018-02-22] MEDS: LORazepam 2 MG/ML INJ IV PRN (16:37)
[2018-02-22] MEDS ORDERED: HEPARIN SODIUM,PORCINE 5,000 UNIT/ML 1 ML VIAL SQ SCH (21:00)
[2018-02-22] MEDS ORDERED: DIVALPROEX 500 MG TABLET.DR PO SCH (21:00)
--- NOTE | 2018-02-23 18:11 | P.DS ---
Providers Date of admission: 02/20/18 14:29 Expected date of discharge: 02/22/18 Attending physician: Leland Wesley MD Consults: 02/20/18 14:22 Consult Physician Urgent Consulting Provider: Tawanna Del Rio Consult Reason/Comments: weakness Do you want consulting provider notified?: Yes 02/21/18 14:01 Consult Physician Routine Consulting Provider: Tin Brunner Consult Reason/Comments: depression suicidal ideation Do you want consulting provider notified?: Yes Primary care physician: Cesar Bustos [facility] Course: Discharge Diagnosis: This is a summary of care for Yeison Sinha as he left against medical advice and was not discharged. I did not preform any direct patient care in this case and have only summarized the events to occurred. 1. Numbness in the left side of the body and left shoulder area, MRI brain negative-concern from neurology for Central demyelinating process and MRI cervical spine was ordered 2. Bipolar disorder 3. Chronic tobacco abuse 4. COPD 5. GERD 6. Suicidal ideation-cleared by psychiatry with need for outpatient follow-up only. Hospital Course: Patient is a 47-year-old male with a history of marijuana use, and chronic tobacco use with COPD, bipolar disorder, and GERD who presented to the emergency department because of left arm numbness and heaviness in the left side of his chest. In the ER he underwent a CT of the brain which was negative. He was admitted for further evaluation of possible TIA. He was seen by neurology who felt that the left-sided sensory defects are possible central myelinating process. They ordered an MRI of the cervical spine. They also started the patient on IV Solu-Medrol. MRI of the brain showed a single left parietal white matter high signal focus, carotid Dopplers without any hemodynamically significant stenosis, and echocardiogram with EF 55-60%. He was transferred to our service as he was unhappy with his prior care. He was seen by us one time awaiting MRI cervical spine. He then left AMA on the evening of 02/22. He was encouraged by nursing to follow-up with Dr. Del Rio, Dr. Culver, and his primary care physician. A total of 25 minutes of time were spent preparing this complex discharge summary . Pertinent Studies: MRI of the brain showed a single left parietal white matter high signal focus, carotid Dopplers without any hemodynamically significant stenosis, and echocardiogram with EF 55-60%. Plan - Discharge Summary Discharge Rx Participant: Yes New Discharge Prescriptions: No Action Budesonide-Formot 160-4.5 Mcg [Symbicort 160-4.5 Mcg Inhaler] 2 puff INHALATION RT-DAILY clonazePAM [KlonoPIN] 1 mg PO QID Omeprazole 20 mg PO DAILY Albuterol Inhaler [Ventolin Hfa Inhaler] 1 - 2 puff INHALATION RT-Q6H PRN PRN Reason: Shortness Of Breath Divalproex [Depakote] 500 mg PO TID QUEtiapine [SEROquel] 25 mg PO BID QUEtiapine [SEROquel] 100 mg PO HS Discharge Medication List Albuterol Inhaler [Ventolin Hfa Inhaler] 1 - 2 puff INHALATION RT-Q6H PRN [History] Budesonide-Formot 160-4.5 Mcg [Symbicort 160-4.5 Mcg Inhaler] 2 puff INHALATION RT-DAILY 07/01/16 [History] Divalproex [Depakote] 500 mg PO TID 07/01/16 [History] Omeprazole 20 mg PO DAILY 07/01/16 [History] clonazePAM [KlonoPIN] 1 mg PO QID 07/01/16 [History] QUEtiapine [SEROquel] 25 mg PO BID 02/20/18 [History] QUEtiapine [SEROquel] 100 mg PO HS 02/20/18 [History] Follow up Appointment(s)/Referral(s): Tawanna Del Rio MD [STAFF PHYSICIAN] - 1 Week Cesar Contreras MD [Primary Care Provider] - 1-2 days Angel Culver DO [Doctor of Osteopathic Medicine] - 1 Week Discharge Disposition: Left Against Medical Advice
== END 2018-02-22 18:02 | disposition left against medical advice (07) ==
LOC: EC 11:40 → 3SCARD 14:29
PROVIDERS: ADMIT Internal Medicine; ATTEND Internal Medicine
DX: R20.0 Anesthesia of skin (principal); F31.9 Bipolar disorder, unspecified; F17.200 Nicotine dependence, unspecified, uncomplicated; J44.9 Chronic obstructive pulmonary disease, unspecified; K21.9 Gastro-esophageal reflux disease without esophagitis; R45.851 Suicidal ideations; R53.1 Weakness; R20.2 Paresthesia of skin; K30 Functional dyspepsia; Z53.21 Procedure and treatment not carried out due to patient leaving prior to being seen by health care provider; F41.0 Panic disorder [episodic paroxysmal anxiety]; F60.89 Other specific personality disorders; F17.210 Nicotine dependence, cigarettes, uncomplicated; M25.522 Pain in left elbow; W19.XXXA Unspecified fall, initial encounter; M19.90 Unspecified osteoarthritis, unspecified site; Z87.19 Personal history of other diseases of the digestive system; Z86.010 Personal history of colon polyps; Z87.442 Personal history of urinary calculi; Z82.49 Family history of ischemic heart disease and other diseases of the circulatory system; Z82.3 Family history of stroke; Z79.899 Other long term (current) drug therapy; Z79.51 Long term (current) use of inhaled steroids; Z88.6 Allergy status to analgesic agent; Z88.5 Allergy status to narcotic agent; Z88.0 Allergy status to penicillin; Z88.8 Allergy status to other drugs, medicaments and biological substances
CPT/HCPCS: 96376 ×2; 96361 ×2; 96375; 96374; 99285; 36415; 94640 ×2; 93005; 93306; 97161; 92610; 80061; 80053 ×2; 82550; 82553; 84484; 85025 ×2; 85610; 85730; 83090; 73080; 71046; 93880; 70450; 70553; G0378 ×3; S4990 ×3; J2060 ×3; J2930 ×2; A9585

== ENCOUNTER 2018-02-24 18:26 | Observation (INO) | payer OTHER ==
[2018-02-24] MEDS ORDERED: SODIUM CHLORIDE 0.9% 1,000 ML IV STA (18:59)
--- NOTE | 2018-02-24 19:13 | ED ---
General Adult HPI - General Chief complaint: Neuro Symptoms/Deficit Stated complaint: L Side Numbness Time Seen by Provider: 02/24/18 18:30 Source: patient, RN notes reviewed Mode of arrival: ambulatory Limitations: no limitations - History of Present Illness Initial comments: This is a 47-year-old male who presents emergency Department with a pins and needle sensation on the left side of his body from his face left arm left chest and back and a little bit in the left leg for a week and a half. Patient states she was admitted to the hospitalist weekend and he left AGAINST MEDICAL ADVICE before the workup was completed. Patient states he had ago had some family emergency. Patient states the symptoms have not improved but they have not worsened. Patient doesn't notice any weakness. Patient states he got home and on Friday he was vomiting up some blood but that subsided on Friday night he hasn't had any vomiting since per patient denies any headache patient denies any chest pain or palpitations. Patient denies shortness of breath or difficulty breathing. Patient states he did have a little abdominal pain when he was vomiting but currently has no abdominal pain. Patient states she's here because of the pins and needle sensation left-sided body which did not resolve. Patient states he has normal sensation on that side of the body but it just feels like that will side of his body is going to sleep. - Related Data Home Medications Medication Instructions Recorded Confirmed Albuterol Inhaler [Ventolin Hfa 1 - 2 puff INHALATION RT-Q6H PRN 07/01/16 Inhaler] Budesonide-Formot 160-4.5 Mcg 2 puff INHALATION RT-DAILY 07/01/16 02/24/18 [Symbicort 160-4.5 Mcg Inhaler] Omeprazole 20 mg PO DAILY 07/01/16 02/24/18 clonazePAM [KlonoPIN] 1 mg PO QID 07/01/16 02/24/18 Allergies Allergy/AdvReac Type Severity Reaction Status Date / Time morphine Allergy Itching Verified 02/24/18 19:45 Penicillins Allergy Anaphylaxis Verified 02/24/18 19:45 acetaminophen [From [place]] AdvReac Unknown Verified 02/24/18 19:45 aspirin AdvReac Vomiting Verified 02/24/18 19:45 hydrocodone [From [place]] AdvReac Unknown Verified 02/24/18 19:45 ibuprofen AdvReac Unknown Verified 02/24/18 19:45 Review of Systems ROS Statement: Those systems with pertinent positive or pertinent negative responses have been documented in the HPI. ROS Other: All systems not noted in ROS Statement are negative. Past Medical History Past Medical History: COPD, GERD/Reflux, GI Bleed, Osteoarthritis (OA) Additional Past Medical History / Comment(s): ulcers, insomnia. past colon polyps-pbenign, kidney stones,"tremors", "when yonger had an irreg heart beat" history of bipolar disorder, panic disorder, personality disorder. History of Any Multi-Drug Resistant Organisms: None Reported Past Surgical History: Orthopedic Surgery Additional Past Surgical History / Comment(s): egd/colonosocpy, rt shoulder sx, rt x6 arthroscopic sx, lt knee 3 arthrosocopic sx, rt hand reconstruction, bronchoscopy Past Anesthesia/Blood Transfusion Reactions: No Reported Reaction Additional Past Anesthesia/Blood Transfusion Reaction / Comment(s): clausterphobia Past Psychological History: Panic Disorder Smoking Status: Current every day smoker - Past Family History Mother Family Medical History: No Reported History Father Family Medical History: Coronary Artery Disease (CAD) (father 65-year-old has history of CAD post PA and permanent pacemaker placement as well as TIA.) Additional Family Medical History / Comment(s): heart problems and pacemaker/ aicd Sister(s) Family Medical History: No Reported History (patient has one sister major medical problems.) Daughter(s) Family Medical History: No Reported History (patient has 2 daughters no major medical problems) Son(s) Family Medical History: No Reported History (patient has 2 sons no major medical problems) General Exam - General Exam Comments Initial Comments: GENERAL: Patient is well-developed and well-nourished. Patient is nontoxic and well- hydrated and is in no acute distress. ENT: Neck is soft and supple. No significant lymphadenopathy is noted. Oropharynx is clear. Moist mucous membranes. Neck has full range of motion without eliciting any pain. EYES: The sclera were anicteric and conjunctiva were pink and moist. Extraocular movements were intact and pupils were equal round and reactive to light. Eyelids were unremarkable. PULMONARY: Unlabored respirations. Good breath sounds bilaterally. No audible rales rhonchi or wheezing was noted. CARDIOVASCULAR: There is a regular rate and rhythm without any murmurs gallops or rubs. ABDOMEN: Soft and nontender with normal bowel sounds. No palpable organomegaly was noted. There is no palpable pulsatile mass. SKIN: Skin is clear with no lesions or rashes and otherwise unremarkable. NEUROLOGIC: Patient is alert and oriented x3. Cranial nerves II through XII are grossly intact. Patient's arm strength on the left is 4-5 compared to the right otherwise there are no motor deficits noted. Patient has normal sensation in all 4 extremities. Normal speech, volume and content. Symmetrical smile. MUSCULOSKELETAL: Normal extremities with adequate strength and full range of motion. No lower extremity swelling or edema. No calf tenderness. LYMPHATICS: No significant lymphadenopathy is noted PSYCHIATRIC: Normal psychiatric evaluation. Limitations: no limitations Course Vital Signs 02/24/18 02/24/18 02/24/18 18:27 20:00 21:00 Temperature 98.0 F Pulse Rate 70 76 89 Respiratory 18 14 20 Rate Blood Pressure 117/78 103/76 120/72 O2 Sat by Pulse 97 97 95 Oximetry Medical Decision Making - Medical Decision Making EKG shows a normal sinus rhythm at 73 bpm UT interval 184 QRS is 104 QT interval 374 QTC is 412. Patient's EKG shows no ST segment elevation or depression or T wave abnormalities are noted. I reviewed the MRI Doppler and CT from the previous visit. Patient has had no new symptoms. I spoke with Dr. More Dailey said the patient fired him I spoke with the patient he agreed that this occurred. The patient wanted to be admitted to medical correspondence representative who is Dr. Saunders in. Spoke with Dr. Saunders and he agreed to admit I admitted the patient consulted neurology. - Lab Data Result diagrams: 02/24/18 19:17 02/24/18 19:17 Lab Results 02/24/18 02/24/18 02/24/18 Range/Units 19:17 19:17 19:17 WBC 13.2 H (3.8-10.6) k/uL RBC 4.86 (4.30-5.90) m/uL Hgb 14.6 (13.0-17.5) gm/dL Hct 43.5 (39.0-53.0) % MCV 89.6 (80.0-100.0) fL MCH 30.0 (25.0-35.0) pg MCHC 33.6 (31.0-37.0) g/dL RDW 13.1 (11.5-15.5) % Plt Count 187 (150-450) k/uL Neutrophils % 70 % Lymphocytes % 21 % Monocytes % 7 % Eosinophils % 1 % Basophils % 0 % Neutrophils # 9.2 H (1.3-7.7) k/uL Lymphocytes # 2.8 (1.0-4.8) k/uL Monocytes # 1.0 (0-1.0) k/uL Eosinophils # 0.1 (0-0.7) k/uL Basophils # 0.0 (0-0.2) k/uL PT (9.0-12.0) sec INR (<1.2) APTT (22.0-30.0) sec Sodium 141 (137-145) mmol/L Potassium 3.4 L (3.5-5.1) mmol/L Chloride 103 (98-107) mmol/L Carbon Dioxide 30 (22-30) mmol/L Anion Gap 8 mmol/L BUN 25 H (9-20) mg/dL Creatinine 0.83 (0.66-1.25) mg/dL Est GFR (CKD-EPI)AfAm >90 (>60 ml/min/1.73 sqM) Est GFR (CKD-EPI)NonAf >90 (>60 ml/min/1.73 sqM) Glucose 124 H (74-99) mg/dL Calcium 9.4 (8.4-10.2) mg/dL Total Bilirubin 0.9 (0.2-1.3) mg/dL AST 18 (17-59) U/L ALT 17 L (21-72) U/L Alkaline Phosphatase 58 (38-126) U/L Total Creatine Kinase 85 (55-170) U/L CK-MB (CK-2) <0.2 (0.0-2.4) ng/mL CK-MB (CK-2) Rel Index Troponin I <0.012 (0.000-0.034) ng/mL Total Protein 6.8 (6.3-8.2) g/dL Albumin 4.0 (3.5-5.0) g/dL 02/24/18 Range/Units 19:17 WBC (3.8-10.6) k/uL RBC (4.30-5.90) m/uL Hgb (13.0-17.5) gm/dL Hct (39.0-53.0) % MCV (80.0-100.0) fL MCH (25.0-35.0) pg MCHC (31.0-37.0) g/dL RDW (11.5-15.5) % Plt Count (150-450) k/uL Neutrophils % % Lymphocytes % % Monocytes % % Eosinophils % % Basophils % % Neutrophils # (1.3-7.7) k/uL Lymphocytes # (1.0-4.8) k/uL Monocytes # (0-1.0) k/uL Eosinophils # (0-0.7) k/uL Basophils # (0-0.2) k/uL PT 10.6 (9.0-12.0) sec INR 1.0 (<1.2) APTT 24.5 (22.0-30.0) sec Sodium (137-145) mmol/L Potassium (3.5-5.1) mmol/L Chloride (98-107) mmol/L Carbon Dioxide (22-30) mmol/L Anion Gap mmol/L BUN (9-20) mg/dL Creatinine (0.66-1.25) mg/dL Est GFR (CKD-EPI)AfAm (>60 ml/min/1.73 sqM) Est GFR (CKD-EPI)NonAf (>60 ml/min/1.73 sqM) Glucose (74-99) mg/dL Calcium (8.4-10.2) mg/dL Total Bilirubin (0.2-1.3) mg/dL AST (17-59) U/L ALT (21-72) U/L Alkaline Phosphatase (38-126) U/L Total Creatine Kinase (55-170) U/L CK-MB (CK-2) (0.0-2.4) ng/mL CK-MB (CK-2) Rel Index Troponin I (0.000-0.034) ng/mL Total Protein (6.3-8.2) g/dL Albumin (3.5-5.0) g/dL Disposition Clinical Impression: Cerebrovascular accident, Hematemesis Disposition: ADMITTED IP TO THIS HOSP Referrals: Cesar Contreras MD [Primary Care Provider] - 1-2 days Time of Disposition: 21:07
[2018-02-24 19:39] LABS: Basophils % (A) 0 %; Eosinophils # (A) 0.1 k/uL (0-0.7); Eosinophils % (A) 1 %; HCT 43.5 % (39.0-53.0); HGB 14.6 gm/dL (13.0-17.5); Lymphocytes # (A) 2.8 k/uL (1.0-4.8); Lymphocytes % (A) 21 %; MCHC 33.6 g/dL (31.0-37.0); MCV 89.6 fL (80.0-100.0); Mean Platelet Volume 7.7; Monocytes % (A) 7 %; Neutrophils # (A) 9.2 k/uL (1.3-7.7); Neutrophils % (A) 70 %; Platelet Count 187 k/uL (150-450); RBC 4.86 m/uL (4.30-5.90); RDW 13.1 % (11.5-15.5); WBC 13.2 k/uL (3.8-10.6)
[2018-02-24 19:47] LABS: Creatine Kinase 85 U/L (55-170); Partial Thromboplastin Time 24.5 sec (22.0-30.0); Prothrombin Time 10.6 sec (9.0-12.0)
[2018-02-24 19:49] LABS: ALT 17 U/L (21-72); AST 18 U/L (17-59); Alkaline Phosphatase 58 U/L (38-126); Anion Gap 8 mmol/L; Blood Urea Nitrogen 25 mg/dL (9-20); Calcium 9.4 mg/dL (8.4-10.2); Carbon Dioxide 30 mmol/L (22-30); Chloride 103 mmol/L (98-107); Glucose 124 mg/dL (74-99); Potassium 3.4 mmol/L (3.5-5.1); Sodium 141 mmol/L (137-145); Total Bilirubin 0.9 mg/dL (0.2-1.3); Total Protein 6.8 g/dL (6.3-8.2)
[2018-02-24 20:00] LABS: Creatine Kinase MB <0.2 ng/mL (0.0-2.4); Troponin I <0.012 ng/mL (0.000-0.034)
[2018-02-24] MEDS ORDERED: ASPIRIN 325 MG TAB PO STA (21:08)
[2018-02-24] MEDS ORDERED: ONDANSETRON 4 MG/2 ML VIAL IVP STA (21:25)
[2018-02-25 02:23] VITALS: BMI 22.4
[2018-02-25 06:39] LABS: Appearance,Urine Clear (Clear); Bilirubin,Urine Negative (Negative); Blood,Urine Negative (Negative); Color,Urine Yellow; Glucose,Urine (UA) Negative (Negative); Ketones,Urine Trace (Negative); Leukocyte Esterase,Urine Negative (Negative); Mucus,Urine Many /hpf; Nitrite,Urine Negative (Negative); Protein,Urine 1+ (Negative); RBC,Urine <1 /hpf (0-5); Specific Gravity,Urine 1.031 (1.001-1.035); WBC,Urine 1 /hpf (0-5)
[2018-02-25] MEDS ORDERED: PANTOPRAZOLE 40 MG/10 ML VIAL IVP SCH (06:41)
[2018-02-25] MEDS ORDERED: METOCLOPRAMIDE 5 MG/ML 2 ML VIAL IVP SCH (06:45)
[2018-02-25] MEDS: SODIUM CHLORIDE 0.9% 1,000 ML IV SCH ×3 (06:47→22:13)
[2018-02-25 06:52] LABS: HCT 42.7 % (39.0-53.0); HGB 13.9 gm/dL (13.0-17.5); MCH 29.5 pg (25.0-35.0); MCHC 32.5 g/dL (31.0-37.0); MCV 90.8 fL (80.0-100.0); Mean Platelet Volume 7.4; Platelet Count 201 k/uL (150-450); RDW 13.1 % (11.5-15.5); WBC 10.8 k/uL (3.8-10.6)
[2018-02-25 07:06] LABS: Anion Gap 9 mmol/L; Blood Urea Nitrogen 23 mg/dL (9-20); Calcium 8.9 mg/dL (8.4-10.2); Carbon Dioxide 25 mmol/L (22-30); Chloride 106 mmol/L (98-107); Cholesterol 151 mg/dL (<200); Glucose 107 mg/dL (74-99); HDL Cholesterol 43 mg/dL (40-60); LDL Cholesterol,Calculated 88 mg/dL (0-99); Potassium 3.8 mmol/L (3.5-5.1); Sodium 140 mmol/L (137-145); Triglycerides 99 mg/dL (<150)
[2018-02-25] MEDS: LORazepam 2 MG/ML INJ IV SCH ×3 (08:31→23:33)
[2018-02-25] MEDS ORDERED: ALBUTEROL NEBULIZED 2.5 MG/3 ML INHALATION PRN (08:45)
[2018-02-25] MEDS ORDERED: ASPIRIN 325 MG TAB PO SCH (09:00)
[2018-02-25] MEDS: METOCLOPRAMIDE 5 MG/ML 2 ML VIAL IVP SCH ×3 (12:31→23:33)
--- NOTE | 2018-02-25 16:41 | PN ---
PROGRESS NOTE DATE OF SERVICE: 02/25/2018 CHIEF COMPLAINT: Left-sided dysesthesias and hematemesis. HISTORY OF PRESENT ILLNESS: This gentleman has been stable and he has not had any further hematemesis. He still has left-sided symptoms. Physical exam is unchanged. No abnormalities. Abdomen is soft, nontender. IMPRESSION: 1. Hematemesis. 2. Left-sided dysesthesias. PLAN: Continue further neurologic evaluation. MMODL / IJN: [id number] /
--- NOTE | 2018-02-25 16:41 | HP ---
HISTORY AND PHYSICAL CHIEF COMPLAINT: Left-sided numbness for a week with hematemesis. HISTORY OF PRESENT ILLNESS: This is the first known admission for this 47-year-old male. He presented to the emergency room with a history of on the left side of his body for about a week. He was in the hospital and left AGAINST MEDICAL ADVICE for a family emergency. He has come back with the same symptoms, except that when he went home he started vomiting and believes he threw up blood. He denies any melena. REVIEW OF SYSTEMS: He has had no headaches, change in vision or hearing, heart disease, hypertension, murmurs, rheumatic fever, orthopnea, PND, renal failure, diabetes, hematuria, etc. Past medical history, family history, and personal and social histories reveal that he takes omeprazole, albuterol. He has been on Klonopin as well. ALLERGIES: 1. NSAIDS. 2. MORPHINE. 3. PENICILLIN. 4. NORCO. Surgically he has had a rotator cuff repair and procedures on 2 knees. There is heart disease in his family. He smokes a pack of cigarettes a day. PHYSICAL EXAMINATION: Blood pressure is 110/75. Pulse is 61, temperature 97.8, respirations of 18. In general he appeared to be slender, well developed, well nourished, in no acute distress. Skin color was normal. Skin was warm and dry. Lymph nodes were not enlarged. Head, ears, eyes, nose, mouth and throat were normal. Neck veins were not distended. Thyroid was not enlarged. Chest was clear. Cardiac exam was normal. The abdomen was soft, nontender. Extremities were normal. Neurologically he seemed to be intact. IMPRESSION: 1. Left-sided hemidysesthesias. 2. History of nausea and vomiting with possible hematemesis. PLAN: 1. Bed rest. 2. Neurology workup. 3. Possible GI endoscopy. MMODL / IJN: [id number] /
[2018-02-25] MEDS: PANTOPRAZOLE 40 MG/10 ML VIAL IVP SCH (18:32)
--- NOTE | 2018-02-25 23:20 | CONS ---
CONSULTATION DATE OF CONSULTATION: 02/25/2018. CHIEF COMPLAINT: Left-sided numbness. HISTORY OF PRESENT ILLNESS: Mr. Sinha is a 47-year-old male, who was being evaluated by the neurology service per the request of Dr. Ramsay for left-sided numbness. The patient has been having numbness on the left side of his face and upper and lower extremity for several days. He believes that the onset was of a subacute onset. He was initially brought into [facility] back on 02/20/2018 and was evaluated by my service at the time. DICTATION STOPPED HERE. MMODL / IJN: [id number] /
--- NOTE | 2018-02-25 23:26 | CONS ---
CONSULTATION CONTINUATION OF CONSULTATION: DATE OF SERVICE: 02/25/2018 CONTINUATION: The patient did have an MRI of the brain on that admission which showed no evidence of any acute ischemic strokes, but there was an incidental finding of a white matter lesion on the left side, which did not explain his left-sided symptoms. He was started on IV Solu-Medrol and an MRI of the spine was ordered to check for any intraspinal abnormalities causing his symptoms. The patient ended up leaving the hospital AGAINST MEDICAL ADVICE, which he states was due to a family emergency. He reports that his symptoms did improve with the Solu-Medrol but worsened again after he left the hospital, which made him come back in for further testing and management. He is also reporting mild weakness in his left upper extremity. On this admission, his CBC showed mild leukocytosis at 13.2. His comprehensive metabolic profile showed slightly elevated BUN at 25, mild hyperglycemia at 124, and mild hypokalemia at 3.4. His cardiac enzymes and fasting lipid panel were normal. His urinalysis was normal. He denies any headache or dizziness and denies any fevers. PAST MEDICAL HISTORY: 1. Chronic obstructive pulmonary disease. 2. Gastroesophageal reflux disease. 3. History of GI bleeding. 4. Arthritis. 5. Orthopedic surgeries involving the right shoulder and left knee. 6. He also had right hand reconstructive surgery. SOCIAL HISTORY: The patient is a current everyday smoker. He does smoke marijuana as well. He denies any alcohol or drug use. FAMILY HISTORY: Positive for heart disease and stroke. HOME MEDICATIONS: Reviewed in the chart. ALLERGIES: 1. MORPHINE. 2. PENICILLIN. 3. NORCO. 4. ACETAMINOPHEN. 5. ASPIRIN. 6. IBUPROFEN. REVIEW OF SYSTEMS: CONSTITUTIONAL: Negative. EYES: Negative. ENT: Negative. CARDIOVASCULAR: Negative. RESPIRATORY: Positive for occasional shortness of breath. NEUROLOGICAL: As mentioned above. GASTROINTESTINAL: Positive for occasional heartburn and history of GI bleeding. GENITOURINARY: Negative. DERMATOLOGICAL: Negative. ENDOCRINE: Negative. PSYCHIATRIC: Negative. MUSCULOSKELETAL: Positive for occasional joint pain. PHYSICAL EXAMINATION: Vital signs show a temperature of 97.7, pulse 67, respiration 18, blood pressure 116/74. GENERAL APPEARANCE: The patient is a well-developed male who appears to be in no acute distress. HEENT: Normocephalic, atraumatic. No facial asymmetry is seen. NECK: Supple with no masses felt. CARDIOVASCULAR: Regular rate and rhythm. ABDOMEN: Nontender, nondistended. Extremities showed no edema or clubbing. NEUROLOGICAL EXAM: The patient is awake and oriented x3. Speech and language are normal. Strength is 5 minus out of 5 in the left upper extremity and 5/5 elsewhere. Sensory exam showed diminished light touch sensation on the left upper and lower extremity compared to the right side. No pronator drift is seen. No dysdiadochokinesia is noticed. Cranial nerve testing showed diminished light touch sensation on the left face but only involving C2 and C3 distribution. No facial asymmetry is noticed. No sensory deficit is noticed in the forehead region. No tremors or seizure-like activity is seen. IMPRESSION: 1. Left-sided numbness. 2. Nonspecific white matter changes on MRI of the brain. RECOMMENDATION: As mentioned above, the patient did leave the hospital AGAINST MEDICAL ADVICE but did come back, as his symptoms worsened again. His symptoms were improving with IV Solu- Medrol, as mentioned above. His MRI of the brain did not show any ischemic findings. Demyelinating disorder is within the differential diagnosis. I will restart him on IV Solu-Medrol 250 mg every 8 hours. I do recommend Accu-Cheks and sliding scale insulin. I will order an MRI of the cervical and thoracic spine with contrast. The patient will need further outpatient neurological workup. Continue neuro checks. I will continue to follow with you. Further recommendations to follow. Thank you for allowing me to participate in the care of your patient. If you have any questions, please feel free to contact me. MMODL / IJN: [id number] /
[2018-02-26 06:36] LABS: Glucose,Whole Blood 137 mg/dL (75-99)
[2018-02-26] MEDS: SODIUM CHLORIDE 0.9% 1,000 ML IV SCH ×3 (06:39→21:27)
[2018-02-26] MEDS: METOCLOPRAMIDE 5 MG/ML 2 ML VIAL IVP SCH ×3 (06:40→17:55)
[2018-02-26] MEDS ORDERED: NON-FORMULARY DRUG (Omeprazole [Omeprazole] 20 MG) PO SCH (09:00)
[2018-02-26] MEDS: PANTOPRAZOLE 40 MG/10 ML VIAL IVP SCH ×2 (09:23→22:28)
[2018-02-26] MEDS: LORazepam 2 MG/ML INJ IV SCH ×2 (09:24→15:00)
[2018-02-26] MEDS ORDERED: DIAZEPAM 5 MG TAB PO STA (11:40)
[2018-02-26 11:52] LABS: Glucose,Whole Blood 119 mg/dL (75-99)
[2018-02-26] MEDS: SYMBICORT 160-4.5 MCG INHALER INHALATION SCH (11:57)
--- NOTE | 2018-02-26 14:03 | MR ---
MRI CERVICAL SPINE: MRI THORACIC SPINE: CLINICAL HISTORY: Numbness and weakness. Rule out demyelination. TECHNIQUE: Multiplanar, multisequence imaging of the cervical in thoracic spine are performed without and with IV contrast, 7 cc of gadolinium was given intravenously. COMPARISON: None. FINDINGS: Sagittal images of the cervical spine show the craniocervical junction to appear within nor mal limits. The cervical and upper thoracic spinal cord is normal in caliber and course. There is la rge oval focus of T2 hyperintensity in the posterior cervical spinal cord at inferior C2 level sagitt al image 6 measuring 12 mm on long axis. Vertebral alignment is anatomic. Mild disc space narrowing C 5-C6 level is present. Small posterior disc herniation is seen at this level on sagittal images. The vertebral body and intravertebral disk heights otherwise are normal. The bone marrow signal intensit y is within normal limits. Motion artifact degradation seen on postcontrast images with heterogeneous enhancement felt present sagittal image 5. Axial images confirm the left posterior T2 hyperintense lesion measuring 5 mm transversely by 6 mm AP diameter inferior C2 level, enhancement is less prominent but felt present along posterior aspect on axial images. There are multilevel uncovertebral facet degenerative changes contributing to mild to moderate multilevel bilateral neural foraminal narrowing. Tiny right paracentral disc protrusion is c onfirmed C5-C6 level on axial image 23.. IMPRESSION: Heterogeneous enhancing cord lesion left posterior C2 level noted. T-SPINE: FINDINGS: Spinal cord shows normal course, caliber, and signal as it courses the thoracic spine. Alexis tebral body heights and alignment are satisfactory. Disc space heights are maintained. Tiny posterior disc herniation T7-T8 level minimally effacing the anterior thecal sac on sagittal image 7. Bone mar row signal intensity is preserved. No suspicious enhancement is seen. There is mild to minimal multil evel anterior spurring is noted to lower thoracic spine. Axial images are degraded by patient motion. No definitive cord lesions or enhancement are seen. No s uspicious posterior disc herniations are identified. IMPRESSION: No evidence of demyelinating disease involvement in the thoracic spinal cord.
--- NOTE | 2018-02-26 14:16 | P.CONS ---
History of Present Illness - Reason for Consult Consult date: 02/26/18 hematemesis Requesting physician: Alo Ramsay - Chief Complaint Left-sided weakness hematemesis - History of Present Illness 47-year-old male past medical history GERD, peptic ulcer disease, bipolar presents with suicidal ideations, left-sided weakness hematemesis. Patient states on Friday he had multiple episodes of intractable nausea blood-tinged vomiting without fever chills hematochezia or melena. Patient reports multiple episodes of blood-tinged emesis that stopped on Friday. Denies abdominal pain. No NSAIDs or aspirin or antiplatelet medications. No alcohol. Hemoglobin on admission 14.6 presently 13.9. White count 10.8. Platelet 201. INR 1.0. BUN 25 decreased to 23. History of EGD possibly 2 years ago may be longer he is unsure. Review of Systems Constitutional: Denies fever, chills, sweats, weight gain, or loss. HEENT: Negative for migraines, blurred vision or loss, earaches, drainage, tinnitus, oral mucosal lesions, dysphagia, or odynophagia. Cardiac: Negative for chest pain, arrhythmias, or palpitation. Respiratory: Negative for shortness of breath, hemoptysis, cough, or sputum production. Gastrointestinal: See HPI for pertinent findings. Genitourinary: Negative for hematuria, urgency, frequency, polyuria, dysuria, or penile discharge. Musculoskeletal: Left-sided weakness. Negative for muscle aches, swelling, arthritis, and arthralgias. Neurologic: Negative for stroke or TIA. Endocrine: Negative for thyroid problems. Skin: Negative for rash or itching. Psychiatric: Negative history for depression and anxiety Past Medical History Past Medical History: COPD, GERD/Reflux, GI Bleed, Osteoarthritis (OA) Additional Past Medical History / Comment(s): ulcers, insomnia. past colon polyps-pbenign, kidney stones,"tremors", "when yonger had an irreg heart beat" history of bipolar disorder, panic disorder, personality disorder. History of Any Multi-Drug Resistant Organisms: None Reported Past Surgical History: Orthopedic Surgery Additional Past Surgical History / Comment(s): egd/colonosocpy, rt shoulder sx, rt x6 arthroscopic sx, lt knee 3 arthrosocopic sx, rt hand reconstruction, bronchoscopy Past Anesthesia/Blood Transfusion Reactions: No Reported Reaction Additional Past Anesthesia/Blood Transfusion Reaction / Comm: clausterphobia Past Psychological History: Panic Disorder Smoking Status: Current every day smoker Past Alcohol Use History: Rare Additional Past Alcohol Use History / Comment(s): started smoking at age 17 smokes between 1-1.5 ppd Past Drug Use History: Marijuana - Past Family History Mother Family Medical History: No Reported History Father Family Medical History: Coronary Artery Disease (CAD) Additional Family Medical History / Comment(s): heart problems and pacemaker/ aicd Sister(s) Family Medical History: No Reported History Daughter(s) Family Medical History: No Reported History Son(s) Family Medical History: No Reported History Medications and Allergies Home Medications Medication Instructions Recorded Confirmed Type Albuterol Inhaler [Ventolin Hfa 1 - 2 puff INHALATION RT-Q6H PRN 07/01/16 History Inhaler] Budesonide-Formot 160-4.5 Mcg 2 puff INHALATION RT-DAILY 07/01/16 02/24/18 History [Symbicort 160-4.5 Mcg Inhaler] Omeprazole 20 mg PO DAILY 07/01/16 02/24/18 History clonazePAM [KlonoPIN] 1 mg PO QID 07/01/16 02/24/18 History Allergies Allergy/AdvReac Type Severity Reaction Status Date / Time morphine Allergy Itching Verified 02/24/18 19:45 Penicillins Allergy Anaphylaxis Verified 02/24/18 19:45 acetaminophen [From [place]] AdvReac Unknown Verified 02/24/18 19:45 aspirin AdvReac Vomiting Verified 02/24/18 19:45 hydrocodone [From [facility]] AdvReac Unknown Verified 02/24/18 19:45 ibuprofen AdvReac Unknown Verified 02/24/18 19:45 Physical Exam Vitals: Vital Signs Temp Pulse Resp BP Pulse Ox 02/26/18 12:00 98.0 F 70 16 109/60 95 02/26/18 08:00 97.7 F 74 16 104/63 97 02/26/18 04:00 17 02/26/18 00:00 71 15 117/70 94 L 02/25/18 20:00 97.9 F 64 17 127/70 98 02/25/18 15:51 58 L 18 120/78 100 Intake and Output 02/25/18 02/26/1802/26/18 22:59 06:59 14:59 Intake Total 1260 1300 600 Balance 1260 1300 600 Intake: Intake, IV Titration 900 1300 Amount Sodium Chloride 0.9% 1, 900 1200 000 ml @ 150 mls/hr IV . Q6H40M [facility] Rx#:[id number] methylPREDNISolone SOD 100 SUCC 250 mg In Sodium Chloride 0.9% 100 ml @ 100 mls/hr IVPB Q8H [facility] Rx#:[id number] Oral 360 600 Other: Voiding Method Toilet Toilet Toilet # Voids 3 1 Weight 73.5 kg General appearance: The patient is alert, oriented, in no acute distress. HET: Head is normocephalic and atraumatic. Pupils are equal and reactive. Oropharynx is clear without lesions. Neck: Supple without lymphadenopathy. Trachea midline. Heart: S1 S2. Regular rate and rhythm. Lungs: No crackles or wheezes are heard. Abdomen: Soft, nontender, nondistended with bowel sounds. No peritoneal signs. No palpable organomegaly or masses. Extremities: Normal skin color and turgor. No cyanosis, rash, ulceration, clubbing, or edema. Radial and pedal pulses are 2/4 bilaterally. Neurological: No focal deficits. Strength and sensation are grossly intact. Results CBC & Chem 7: 02/25/18 06:28 02/25/18 06:28 Labs: Abnormal Lab Results - Last 24 Hours (Table) 02/26/18 02/26/18 Range/Units 06:33 11:50 POC Glucose (mg/dL) 137 H 119 H (75-99) mg/dL Microbiology - Last 24 Hours (Table) 02/25/18 02:31 Urine Culture - Final Urine,Ureter Assessment and Plan (1) Hematemesis Narrative/Plan: 47-year-old male with a history of suicidal ideations bipolar disorder presents with left-sided numbness intractable nausea vomiting blood tinged emesis that started on Friday and resolved Friday. Presently no clinical symptoms to suggest an active GI bleed patient. Suspect Jaz-Garcia tear underlying peptic ulcer disease cannot be entirely excluded however hemoglobin remains stable receiving PPI therapy. Current Visit: Yes Status: Acute Code(s): K92.0 - HEMATEMESIS SNOMED Code( s): 6021759 (2) Nausea & vomiting Current Visit: Yes Status: Acute Code(s): R11.2 - NAUSEA WITH VOMITING, UNSPECIFIED SNOMED Code(s): 82320311 (3) Left sided numbness Current Visit: No Status: Acute Code(s): R20.0 - ANESTHESIA OF SKIN SNOMED Code(s): 24720519 Plan: 1. Continue Protonix 40 mg twice daily. Diet as tolerated. Inpatient endoscopy not planned at this time unless patient manifests recurrence of hematemesis medication or melena. Patient has been evaluated by psychiatry. Neurology service following patient is well. Thank you for this kind referral and the opportunity to participate in the care of your patient. This consultation was discussed with Dr. Mckinney. The impression and plan of care have been directed as dictated.
--- NOTE | 2018-02-26 15:38 | P.PN ---
Subjective Progress Note Date: 02/26/18 Principal diagnosis: Left sided numbness Neurology is following a 47-year-old male for left-sided face, upper and lower extremity numbness. Patient was originally seen in the hospital on 02/20/18 and left AGAINST MEDICAL ADVICE. Patient was receiving IV steroids which were reportedly decreasing the patient's symptoms. Patient then returned on be reevaluated his symptoms had returned and were intolerable. MRI of the brain and initial admission showed no evidence of any acute ischemia. Incidental notation of finding a white matter lesion the left side of the brain which did not explain the patient's left-sided symptoms. Patient was again placed on IV Solu-Medrol infusion 250 mg every 8 hours. Patient also has significant underlying psychiatric history including bipolar with rapid cycling , anxiety and other concurrent underlying psychiatric etiology. Patient states her steroid infusion was decreasing his symptoms he was sent for MRI imaging he became claustrophobic and his anxiety is increasing. He states that his numbness and tingling in the left upper extremity, left torso and left lower extremity is now also increasing. Patient is currently managed by Dr. Culver in the outpatient setting for psych related complaints On contact, patient was alert and oriented 3, resting in bed, appeared highly anxious. Patient did have Ativan on order every 8 hours. Patient is due for his Ativan dose within the next hour. Provider is nursing staff administered Ativan to decrease his anxiety. Objective - Vital Signs Vital signs: Vital Signs Temp 98.0 F 02/26/18 12:00 Pulse 74 02/26/18 12:00 Resp 17 02/26/18 12:00 BP 109/60 02/26/18 12:00 Pulse Ox 95 02/26/18 12:00 Intake & Output 02/25/18 02/26/18 02/26/18 18:59 06:59 18:59 Intake Total 1710 1300 840 Output Total 200 Balance 1510 1300 840 Weight 73.5 kg Intake: Intake, IV Titration 1350 1300 Amount Sodium Chloride 0.9% 1, 1350 1200 000 ml @ 150 mls/hr IV . Q6H40M [facility] Rx#:[id number] methylPREDNISolone SOD 100 SUCC 250 mg In Sodium Chloride 0.9% 100 ml @ 100 mls/hr IVPB Q8H [facility] Rx#:[id number] Oral 360 840 Output: Urine 200 Other: Voiding Method Toilet Toilet # Voids 3 2 - Exam Gen. appearance: Alert, anxious Head: Atraumatic normocephalic, normal inspection Eyes: Well appearance, PERRL, EOMI. Ear nose and throat: Normal exam, mucous membranes moist Neck: Normal inspection. Absent tenderness, lymphadenopathy Respiratory: No increased work of breathing. Cardiovascular: Regular rate, normal rhythm GIabdominal: no tenderness, no guarding Extremities: All range of motion, normal capillary refill, no tenderness, pedal edema, joint swelling, calf tenderness Neurological: Alert and oriented 3, cranial nerves II through XII intact, no unilateral lateralizing weakness, no seizure activity noted on physical exam, no pronator drift and no nystagmus. Psychological: Extremely anxious - Labs CBC & Chem 7: 02/25/18 06:28 02/25/18 06:28 Labs: Abnormal Lab Results - Last 24 Hours (Table) 02/26/18 02/26/18 Range/Units 06:33 11:50 POC Glucose (mg/dL) 137 H 119 H (75-99) mg/dL Microbiology - Last 24 Hours (Table) 02/25/18 02:31 Urine Culture - Final Urine,Ureter Assessment and Plan (1) Left sided numbness Narrative/Plan: Continue IV Solu-Medrol every 8 hours 250 mg Continue sliding scale insulin coverage Continue bedside glucose checks and monitoring Current Visit: No Status: Acute Code(s): R20.0 - ANESTHESIA OF SKIN SNOMED Code(s): 03069382 (2) Anxiety Narrative/Plan: Recommend psychiatric consult for recommendations regarding management patient' s anxiety. It appears there is some secondary contributory etiology to the patient's numbness and tingling that is psychiatric/anxiety related. Current Visit: Yes Status: Acute Code(s): F41.9 - ANXIETY DISORDER, UNSPECIFIED SNOMED Code(s): 52680057 (3) Bipolar disorder Narrative/Plan: Defer to psychiatric provider Current Visit: No Status: Chronic Code(s): F31.9 - BIPOLAR DISORDER, UNSPECIFIED SNOMED Code(s): 18619452 (4) White matter changes Narrative/Plan: Patient does have noted White matter changes on MRI imaging. Changes are not consistent with patient's presentation but do warrant further workup in the outpatient setting It is noteworthy that the patient does report symptom reduction with IV steroids. Current Visit: No Status: Chronic Code(s): EIC0209 - SNOMED Code(s): 123871456 Plan: STATUS: Neurology will continue to follow and provide updates as needed or warranted. Feel free to contact our office with any questions. I discussed the patients history, physical exam, diagnostic testing, lab work and imaging with Dr Del Rio prior to implementing the plan above. He agrees with the plan as implemented prior to implementation.
[2018-02-26 16:53] LABS: Glucose,Whole Blood 185 mg/dL (75-99)
--- NOTE | 2018-02-26 17:37 | PN ---
PROGRESS NOTE CHIEF COMPLAINT: Dysesthesias in the left arm and hematemesis. HISTORY OF PRESENT ILLNESS: This gentleman is not having any further trouble with nausea and vomiting. MRI has been ordered of the CT and thoracic spines. Reports are pending. REVIEW OF SYSTEMS: Patient is not having any complaints. He has had no chest pain, shortness of breath, fever, chills, etc. PHYSICAL EXAM: Chest is clear. Cardiac exam is normal. Abdomen is soft, nontender. He has had no further nausea or vomiting. IMPRESSION: 1. Dysesthesias in the left arm. 2. Nausea and vomiting with a history of hematemesis. 3. Bipolar disorder. PLAN: Await results of MRIs after which he could be discharged. MMODL / IJN: [id number] /
[2018-02-26 20:22] LABS: Glucose,Whole Blood 216 mg/dL (75-99)
[2018-02-27] MEDS: LORazepam 2 MG/ML INJ IV SCH ×2 (00:08→09:39)
[2018-02-27] MEDS: METOCLOPRAMIDE 5 MG/ML 2 ML VIAL IVP SCH ×3 (00:08→14:17)
[2018-02-27] MEDS: SODIUM CHLORIDE 0.9% 1,000 ML IV SCH ×2 (00:13→06:00)
[2018-02-27 01:34] VITALS: RESP 18
[2018-02-27 05:17] VITALS: PULSE 73
[2018-02-27 05:58] LABS: Glucose,Whole Blood 147 mg/dL (75-99)
[2018-02-27] MEDS: SYMBICORT 160-4.5 MCG INHALER INHALATION SCH (08:42)
[2018-02-27] MEDS: PANTOPRAZOLE 40 MG/10 ML VIAL IVP SCH (09:39)
[2018-02-27 10:38] VITALS: BP 115/63; TEMP 97.7
[2018-02-27 12:00] LABS: Glucose,Whole Blood 149 mg/dL (75-99)
--- NOTE | 2018-02-27 12:43 | P.CN ---
Psychiatric Consult - . Consult date: 02/27/18 Consult:: 02/27/18 09:34 History of bipolar affective disorder Assessment and Plan Assessment: This is a 47-year-old male who presents emergency Department with a pins and needle sensation on the left side of his body from his face left arm left chest and back and a little bit in the left leg for a week and a half. Patient states she was admitted to the hospitalist weekend and he left AGAINST MEDICAL ADVICE before the workup was completed. Patient states he had ago had some family emergency. Patient states the symptoms have not improved but they have not worsened. Patient doesn't notice any weakness. Patient states he got home and on Friday he was vomiting up some blood but that subsided on Friday night he hasn't had any vomiting since per patient denies any headache patient denies any chest pain or palpitations. Patient denies shortness of breath or difficulty breathing. Patient states he did have a little abdominal pain when he was vomiting but currently has no abdominal pain. Patient states she's here because of the pins and needle sensation left-sided body which did not resolve. Patient states he has normal sensation on that side of the body but it just feels like that will side of his body is going to sleep. - Related Data Home Medications Medication Instructions Recorded Confirmed Albuterol Inhaler [Ventolin Hfa 1 - 2 puff INHALATION RT-Q6H PRN 07/01/16 Inhaler] Budesonide-Formot 160-4.5 Mcg 2 puff INHALATION RT-DAILY 07/01/16 02/24/18 [Symbicort 160-4.5 Mcg Inhaler] Omeprazole 20 mg PO DAILY 07/01/16 02/24/18 clonazePAM [KlonoPIN] 1 mg PO QID 07/01/16 02/24/18 Allergies Allergy/AdvReac Type Severity Reaction Status Date / Time morphine Allergy Itching Verified 02/24/18 19:45 Penicillins Allergy Anaphylaxis Verified 02/24/18 19:45 acetaminophen [From [place]] AdvReac Unknown Verified 02/24/18 19:45 aspirin AdvReac Vomiting Verified 02/24/18 19:45 hydrocodone [From [place]] AdvReac Unknown Verified 02/24/18 19:45 ibuprofen AdvReac Unknown Verified 02/24/18 19:45 Past Medical History Past Medical History: COPD, GERD/Reflux, GI Bleed, Osteoarthritis (OA) Additional Past Medical History / Comment(s): ulcers, insomnia. past colon polyps-pbenign, kidney stones,"tremors", "when yonger had an irreg heart beat" history of bipolar disorder, panic disorder, personality disorder. History of Any Multi-Drug Resistant Organisms: None Reported Past Surgical History: Orthopedic Surgery Additional Past Surgical History / Comment(s): egd/colonosocpy, rt shoulder sx, rt x6 arthroscopic sx, lt knee 3 arthrosocopic sx, rt hand reconstruction, bronchoscopy Past Anesthesia/Blood Transfusion Reactions: No Reported Reaction Additional Past Anesthesia/Blood Transfusion Reaction / Comment(s): clausterphobia Past Psychological History: Panic Disorder Smoking Status: Current every day smoker - Past Family History Mother Family Medical History: No Reported History Father Family Medical History: Coronary Artery Disease (CAD) (father 65-year-old has history of CAD post NH and permanent pacemaker placement as well as TIA.) Additional Family Medical History / Comment(s): heart problems and pacemaker/ aicd Sister(s) Family Medical History: No Reported History (patient has one sister major medical problems.) Daughter(s) Family Medical History: No Reported History (patient has 2 daughters no major medical problems) Son(s) Family Medical History: No Reported History (patient has 2 sons no major medical problems) Mental Status Examination - The patient presents alert, pleasant, and cooperative. There calmly seated without any agitated behavior. [He] reports that [his] mood is good. Affect is congruent and euthymic. [He] deny having any suicidal or homicidal ideation intent or plan. [He] denies any auditory or visual hallucinations. There is no evidence of any delusional thought content. [His] thought process is linear and goal-directed. [His] speech is fluent and nonpressured. [His] memory and concentration is grossly intact for the purposes of this session. Psychiatric impression: Panic disorder/primary anxiety disorder: He is being treated by a local psychiatrist Psychiatric recommendations: As per medical workup to evaluate whether there was any paresthesia may be related to recent all on his left side on his elbow and resulting some numbness after that incident. Follow-up with his outpatient psychiatrist as his gun and appointment set. Thank you for the consult Tin Brunner D.O. PhD Time with Patient: Less than 30
--- NOTE | 2018-02-27 20:44 | DS ---
DISCHARGE SUMMARY CHIEF COMPLAINT: Dysesthesias on the left side and upper GI bleed with hematemesis. HISTORY OF PRESENT ILLNESS AND PHYSICAL EXAMINATION: Details of this man's history and physical can be found in the initial workup. LABORATORY STUDIES: While he was in the hospital he had laboratory studies, details of which can be found in the laboratory section of chart. COURSE IN THE HOSPITAL: After admission he was placed on bedrest, started on intravenous fluids, and he was seen by Gastroenterology and also Neurology. He was also seen by Psychiatry. The central nervous system evaluation was normal. He had no further bleeding and intervention was not sought by GI. He is doing well and it was felt that he could go home. He will go home on his usual activity, diet and medications and will follow up either with us in a week or his own personal physician. FINAL DIAGNOSES: 1. Dysesthesias on the left. 2. Nausea and vomiting with hematemesis. 3. Bipolar depression. OPERATIONS: None. CONSULTATIONS: 1. GI. 2. Neurology. 3. Psychiatry. He is improved. NICKO / TANIA: [id number] /
== END 2018-02-27 15:10 | disposition home or self-care (01) ==
LOC: EC 18:26 → EEVIPCON 21:07 → 3SCARD 21:07
PROVIDERS: ADMIT Family Medicine; ATTEND Family Medicine
DX: R20.8 Other disturbances of skin sensation (principal); R20.0 Anesthesia of skin; R20.2 Paresthesia of skin; K92.0 Hematemesis; F31.9 Bipolar disorder, unspecified; F17.210 Nicotine dependence, cigarettes, uncomplicated; J44.9 Chronic obstructive pulmonary disease, unspecified; K21.9 Gastro-esophageal reflux disease without esophagitis; Z87.19 Personal history of other diseases of the digestive system; D72.829 Elevated white blood cell count, unspecified; E87.6 Hypokalemia; R93.89 Abnormal findings on diagnostic imaging of other specified body structures; R94.4 Abnormal results of kidney function studies; R73.9 Hyperglycemia, unspecified; M19.90 Unspecified osteoarthritis, unspecified site; F41.0 Panic disorder [episodic paroxysmal anxiety]; F60.9 Personality disorder, unspecified; R45.851 Suicidal ideations; Z87.11 Personal history of peptic ulcer disease; Z86.010 Personal history of colon polyps; Z87.442 Personal history of urinary calculi; Z88.5 Allergy status to narcotic agent; Z88.0 Allergy status to penicillin; Z88.8 Allergy status to other drugs, medicaments and biological substances; Z88.6 Allergy status to analgesic agent; Z79.51 Long term (current) use of inhaled steroids; Z79.899 Other long term (current) drug therapy; Z82.3 Family history of stroke; Z82.49 Family history of ischemic heart disease and other diseases of the circulatory system
CPT/HCPCS: 96376 ×4; 96365; 96366 ×2; 96361 ×2; 96375 ×2; 99285; 36415; 94640 ×2; 93005; 97161; 97165; 92523; 80061; 80053; 80048; 82550; 82553; 83605; 84484; 85025; 85027; 85610; 85730; 81001; 87086; 72156; 72157; G0378 ×4; J2060 ×3; J2765 ×3; J2405; J2930 ×3; C9113 ×3; A9585

== ENCOUNTER 2018-04-23 09:48 | Emergency (ER) | payer OTHER ==
[2018-04-23 09:54] VITALS: TEMP 98.3
[2018-04-23] MEDS ORDERED: SODIUM CHLORIDE 0.9% 1,000 ML IV STA (10:04)
[2018-04-23] MEDS ORDERED: PANTOPRAZOLE 40 MG/10 ML VIAL IVP STA (10:04)
[2018-04-23] MEDS ORDERED: ONDANSETRON 4 MG/2 ML VIAL IVP STA (10:15)
[2018-04-23] MEDS ORDERED: IPRATROPIUM-ALBUTEROL 3 ML NEB INHALATION STA (10:16)
[2018-04-23] MEDS ORDERED: LORazepam 1 MG TAB PO STA (10:25)
--- NOTE | 2018-04-23 10:25 | ED ---
General Adult HPI - General Chief complaint: GI Bleed Stated complaint: Allergic reaction, vomiting blood Time Seen by Provider: 04/23/18 10:04 Source: patient, RN notes reviewed, old records reviewed Mode of arrival: ambulatory Limitations: no limitations - History of Present Illness Initial comments: 47-year-old male patient past medical history of COPD, multiple sclerosis, bipolar disorder presents ED with approximately 2 days of nausea and vomiting. Patient is currently receiving IV steroids the PICC line. Patient reports that he has additionally having hematemesis. Patient reports that this is happened to him the past while receiving steroids. Patient states that he is nauseous today but has not had any emesis. Patient additionally states that he is having some shortness of breath which he feels is at baseline with his copd. Patient denies chest pain. Patient also complains of some epigastric abdominal pain. Patient denies other complaints. Systemic: Pt denies fatigue, myalgia, fever/chills, rash. Pt denies weakness, night sweats, weight loss. Neuro: Pt denies headache, visual disturbances, syncope or pre-syncope. HEENT: Pt denies ocular discharge or irritation, otalgia, rhinorrhea, pharyngitis or notable lymphadenopathy. Cardiopulmonary: Pt denies heart palpitations, dyspnea on exertion. : Pt denies dysuria, burning w/ urination, frequency/urgency. Denies new onset urinary or bowel incontinence. MSK: Pt denies myalgia, loss of strength or function in extremities. Neuro: Pt denies new onset weakness, paresthesias. - Related Data Home Medications Medication Instructions Recorded Confirmed Albuterol Inhaler [Ventolin Hfa 1 - 2 puff INHALATION RT-Q6H PRN 07/01/16 Inhaler] Budesonide-Formot 160-4.5 Mcg 2 puff INHALATION RT-DAILY 07/01/16 04/23/18 [Symbicort 160-4.5 Mcg Inhaler] clonazePAM [KlonoPIN] 1 mg PO QID PRN 04/23/18 04/23/18 Allergies Allergy/AdvReac Type Severity Reaction Status Date / Time heparin Allergy Nausea & Verified 04/23/18 19:02 Vomiting morphine Allergy Itching Verified 04/23/18 19:02 Penicillins Allergy Anaphylaxis Verified 04/23/18 19:02 acetaminophen [From [place]] AdvReac BLEEDING Verified 04/23/18 19:02 aspirin AdvReac Vomiting Verified 04/23/18 19:02 hydrocodone [From [place]] AdvReac BLEEDING Verified 04/23/18 19:02 ibuprofen AdvReac BLEEDING Verified 04/23/18 19:02 Review of Systems ROS Statement: Those systems with pertinent positive or pertinent negative responses have been documented in the HPI. ROS Other: All systems not noted in ROS Statement are negative. Past Medical History Past Medical History: COPD, GERD/Reflux, GI Bleed, Osteoarthritis (OA) Additional Past Medical History / Comment(s): ulcers, insomnia. past colon polyps-pbenign, kidney stones,"tremors", "when yonger had an irreg heart beat" history of bipolar disorder, panic disorder, personality disorder. History of Any Multi-Drug Resistant Organisms: None Reported Past Surgical History: Orthopedic Surgery Additional Past Surgical History / Comment(s): egd/colonosocpy, rt shoulder sx, rt x6 arthroscopic sx, lt knee 3 arthrosocopic sx, rt hand reconstruction, bronchoscopy Past Anesthesia/Blood Transfusion Reactions: No Reported Reaction Additional Past Anesthesia/Blood Transfusion Reaction / Comment(s): clausterphobia Past Psychological History: Panic Disorder Smoking Status: Current every day smoker Past Alcohol Use History: Rare Past Drug Use History: Marijuana - Past Family History Mother Family Medical History: No Reported History Father Family Medical History: Coronary Artery Disease (CAD) Additional Family Medical History / Comment(s): heart problems and pacemaker/ aicd Sister(s) Family Medical History: No Reported History Daughter(s) Family Medical History: No Reported History Son(s) Family Medical History: No Reported History General Exam - General Exam Comments Initial Comments: Constitutional: NAD, AOX3, Pt has pleasant affect. HEENT: NC/AT, trachea midline, neck supple, no lymphadenopathy. Posterior pharynx non erythematous, without exudates. External ears appear normal, without discharge. Mucous membranes moist. Eyes PERRLA, EOM intact. There is no scleral icterus. No pallor noted. Cardiopulmonary: RRR, no murmurs, rubs or gallops, no JVD noted. Lungs CTAB in anterior and posterior anderson. No peripheral edema. Abdominal exam: Abdomen soft and non-distended. Abdomen mildly tender epigastric region, no other areas of abdominal tenderness. Bowel sounds active in LLQ. No hepatosplenomegaly. No ecchymosis Neuro: CN II-XII grossly intact. No nuchal rigidity. MSK: No posterior calf tenderness bilaterally, homans sign negative bilaterally. Posterior tibialis and radial pulse +2 bilaterally. Sensation intact in upper and lower extremities. Full active ROM in upper and lower extremities, 5/5 stregnth. Limitations: no limitations Course Vital Signs 04/23/18 04/23/18 04/23/18 09:50 10:43 10:52 Temperature 98.3 F Pulse Rate 63 47 L 55 L Respiratory 18 Rate Blood Pressure 99/67 O2 Sat by Pulse 97 Oximetry 04/23/18 13:07 Temperature Pulse Rate 57 L Respiratory 15 Rate Blood Pressure 114/72 O2 Sat by Pulse 97 Oximetry Medical Decision Making - Medical Decision Making 47-year-old male patient past medical history of COPD, multiple sclerosis, bipolar disorder presents ED with approximately 2 days of nausea and vomiting. Patient is currently receiving IV steroids the PICC line. Patient reports that he has additionally having hematemesis. Patient reports that this is happened to him the past while receiving steroids. Patient states that he is nauseous today but has not had any emesis. Patient additionally states that he is having some shortness of breath which he feels is at baseline with his copd. Patient denies chest pain. Patient also complains of some epigastric abdominal pain. Patient denies other complaints. Patient initial set of vitals displayed mild hypotension, 99/67, heart rate 63. Physical exam revealed mild epigastric pain. No guarding or rigidity no ecchymoses. Laboratory investigations revealed leukocytosis of 18.0. Coagulation studies within normal limits. CMP revealed mild hypokalemia of 3.4. Troponin was negative. AST ALT mildly elevated. Stool occult was negative. CXR displayed no acute process. CT abd pelvis displayed circumferential wall thickening of the distal esophagus. No free air. also displayed hepatic steatosis. EKG displayed bradycardia, with sinus arrhythmia. incomplete RBBB. Patient states that was read resolved after DuoNeb breathing treatment. Patient was recommended to stay for admission for continued evaluation of upper GI bleed, ekg changes. Patient declined admission and will sign out AGAINST MEDICAL ADVICE. Patient reports that he will return to ED after his obligations are fulfilled. Case discussed in depth and pt seen by Dr. Gay. - Lab Data Result diagrams: 04/23/18 10:05 04/23/18 10:05 Lab Results 04/23/18 04/23/18 04/23/18 Range/Units 10:05 10:05 10:05 WBC 18.0 H (3.8-10.6) k/uL RBC 4.47 (4.30-5.90) m/uL Hgb 13.3 (13.0-17.5) gm/dL Hct 40.0 (39.0-53.0) % MCV 89.5 (80.0-100.0) fL MCH 29.8 (25.0-35.0) pg MCHC 33.3 (31.0-37.0) g/dL RDW 13.7 (11.5-15.5) % Plt Count 206 (150-450) k/uL Neutrophils % 81 % Lymphocytes % 12 % Monocytes % 6 % Eosinophils % 1 % Basophils % 0 % Neutrophils # 14.5 H (1.3-7.7) k/uL Lymphocytes # 2.2 (1.0-4.8) k/uL Monocytes # 1.0 (0-1.0) k/uL Eosinophils # 0.1 (0-0.7) k/uL Basophils # 0.0 (0-0.2) k/uL PT 10.6 (9.0-12.0) sec INR 1.0 (<1.2) APTT 23.5 (22.0-30.0) sec Sodium 141 (137-145) mmol/L Potassium 3.4 L (3.5-5.1) mmol/L Chloride 100 (98-107) mmol/L Carbon Dioxide 30 (22-30) mmol/L Anion Gap 11 mmol/L BUN 25 H (9-20) mg/dL Creatinine 0.80 (0.66-1.25) mg/dL Est GFR (CKD-EPI)AfAm >90 (>60 ml/min/1.73 sqM) Est GFR (CKD-EPI)NonAf >90 (>60 ml/min/1.73 sqM) Glucose 110 H (74-99) mg/dL Calcium 9.6 (8.4-10.2) mg/dL Magnesium (1.6-2.3) mg/dL Total Bilirubin 0.8 (0.2-1.3) mg/dL AST 75 H (17-59) U/L ALT 114 H (21-72) U/L Alkaline Phosphatase 58 (38-126) U/L Troponin I (0.000-0.034) ng/mL Total Protein 6.9 (6.3-8.2) g/dL Albumin 4.4 (3.5-5.0) g/dL Stool Occult Blood (Negative) Blood Type Blood Type Recheck Antibody Screen Spec Expiration Date 04/23/18 04/23/18 04/23/18 Range/Units 10:05 10:05 10:05 WBC (3.8-10.6) k/uL RBC (4.30-5.90) m/uL Hgb (13.0-17.5) gm/dL Hct (39.0-53.0) % MCV (80.0-100.0) fL MCH (25.0-35.0) pg MCHC (31.0-37.0) g/dL RDW (11.5-15.5) % Plt Count (150-450) k/uL Neutrophils % % Lymphocytes % % Monocytes % % Eosinophils % % Basophils % % Neutrophils # (1.3-7.7) k/uL Lymphocytes # (1.0-4.8) k/uL Monocytes # (0-1.0) k/uL Eosinophils # (0-0.7) k/uL Basophils # (0-0.2) k/uL PT (9.0-12.0) sec INR (<1.2) APTT (22.0-30.0) sec Sodium (137-145) mmol/L Potassium (3.5-5.1) mmol/L Chloride (98-107) mmol/L Carbon Dioxide (22-30) mmol/L Anion Gap mmol/L BUN (9-20) mg/dL Creatinine (0.66-1.25) mg/dL Est GFR (CKD-EPI)AfAm (>60 ml/min/1.73 sqM) Est GFR (CKD-EPI)NonAf (>60 ml/min/1.73 sqM) Glucose (74-99) mg/dL Calcium (8.4-10.2) mg/dL Magnesium 2.2 (1.6-2.3) mg/dL Total Bilirubin (0.2-1.3) mg/dL AST (17-59) U/L ALT (21-72) U/L Alkaline Phosphatase (38-126) U/L Troponin I <0.012 (0.000-0.034) ng/mL Total Protein (6.3-8.2) g/dL Albumin (3.5-5.0) g/dL Stool Occult Blood (Negative) Blood Type O Negative Blood Type Recheck No Antibody Screen NEGATIVE Spec Expiration Date 04/26/2018230404/23/18 Range/Units 12:30 WBC (3.8-10.6) k/uL RBC (4.30-5.90) m/uL Hgb (13.0-17.5) gm/dL Hct (39.0-53.0) % MCV (80.0-100.0) fL MCH (25.0-35.0) pg MCHC (31.0-37.0) g/dL RDW (11.5-15.5) % Plt Count (150-450) k/uL Neutrophils % % Lymphocytes % % Monocytes % % Eosinophils % % Basophils % % Neutrophils # (1.3-7.7) k/uL Lymphocytes # (1.0-4.8) k/uL Monocytes # (0-1.0) k/uL Eosinophils # (0-0.7) k/uL Basophils # (0-0.2) k/uL PT (9.0-12.0) sec INR (<1.2) APTT (22.0-30.0) sec Sodium (137-145) mmol/L Potassium (3.5-5.1) mmol/L Chloride (98-107) mmol/L Carbon Dioxide (22-30) mmol/L Anion Gap mmol/L BUN (9-20) mg/dL Creatinine (0.66-1.25) mg/dL Est GFR (CKD-EPI)AfAm (>60 ml/min/1.73 sqM) Est GFR (CKD-EPI)NonAf (>60 ml/min/1.73 sqM) Glucose (74-99) mg/dL Calcium (8.4-10.2) mg/dL Magnesium (1.6-2.3) mg/dL Total Bilirubin (0.2-1.3) mg/dL AST (17-59) U/L ALT (21-72) U/L Alkaline Phosphatase (38-126) U/L Troponin I (0.000-0.034) ng/mL Total Protein (6.3-8.2) g/dL Albumin (3.5-5.0) g/dL Stool Occult Blood Negative (Negative) Blood Type Blood Type Recheck Antibody Screen Spec Expiration Date - EKG Data -: EKG Interpreted by Me (and dr gay ) EKG Comments: 1) ventricular rate 49, NE interval 158, QRS 98, QT/QTc 460/415. Sinus bradycardia with sinus arrhythmia. Left axis deviation. Incomplete right bundle-branch block. T wave abnormality, consider anterior ischemia. Normal EKG. Disposition Clinical Impression: Upper GI bleed, Acute electrocardiogram changes Disposition: Left Against Medical Advice Condition: Undetermined Instructions (If sedation given, give patient instructions): Gastrointestinal Bleeding (ED) Is patient prescribed a controlled substance at d/c from ED?: No Referrals: Cesar Contreras MD [Primary Care Provider] - 1-2 days Time of Disposition: 13:03
[2018-04-23 10:36] LABS: Basophils % (A) 0 %; Eosinophils # (A) 0.1 k/uL (0-0.7); Eosinophils % (A) 1 %; HGB 13.3 gm/dL (13.0-17.5); Lymphocytes # (A) 2.2 k/uL (1.0-4.8); Lymphocytes % (A) 12 %; MCH 29.8 pg (25.0-35.0); MCHC 33.3 g/dL (31.0-37.0); MCV 89.5 fL (80.0-100.0); Mean Platelet Volume 7.7; Monocytes % (A) 6 %; Neutrophils # (A) 14.5 k/uL (1.3-7.7); Neutrophils % (A) 81 %; Platelet Count 206 k/uL (150-450); RBC 4.47 m/uL (4.30-5.90); RDW 13.7 % (11.5-15.5)
[2018-04-23 10:45] LABS: ALT 114 U/L (21-72); AST 75 U/L (17-59); Albumin 4.4 g/dL (3.5-5.0); Alkaline Phosphatase 58 U/L (38-126); Anion Gap 11 mmol/L; Blood Urea Nitrogen 25 mg/dL (9-20); Calcium 9.6 mg/dL (8.4-10.2); Carbon Dioxide 30 mmol/L (22-30); Chloride 100 mmol/L (98-107); Glucose 110 mg/dL (74-99); Potassium 3.4 mmol/L (3.5-5.1); Sodium 141 mmol/L (137-145); Total Bilirubin 0.8 mg/dL (0.2-1.3); Total Protein 6.9 g/dL (6.3-8.2)
[2018-04-23 10:54] LABS: Partial Thromboplastin Time 23.5 sec (22.0-30.0); Prothrombin Time 10.6 sec (9.0-12.0)
--- NOTE | 2018-04-23 11:46 | XR ---
EXAMINATION TYPE: XR chest 2V DATE OF EXAM: 04/23/2018 COMPARISON: 02/20/2018 INDICATION: Pain chest pain TECHNIQUE: Frontal and lateral views of the chest are obtained. FINDINGS: The heart size is normal. The pulmonary vasculature is normal. The lungs are clear. IMPRESSION: 1. No acute pulmonary process.
--- NOTE | 2018-04-23 12:07 | CT ---
EXAMINATION TYPE: CT abdomen pelvis w con DATE OF EXAM: 04/23/2018 COMPARISON: HISTORY: vomiting blood CT DLP: 686.2 mGycm Automated exposure control for dose reduction was used. TECHNIQUE: Helical acquisition of images was performed from the lung bases through the pelvis. CONTRAST: Performed without Oral Contrast and with IV Contrast, patient injected with 100 mL of Isovue 300. FINDINGS: LUNG BASES: Minimal bibasilar subsegmental dependent atelectasis is noted. LIVER/GB: Hepatic parenchyma is diffusely hypoattenuated in comparison to that of the spleen, most co mmonly seen in hepatic steatosis. This finding limits evaluation for hepatic masses. No gross evidenc e of hepatic mass is seen. No intrahepatic biliary ductal dilatation. No cholelithiasis PANCREAS: No significant abnormality is seen. SPLEEN: No significant abnormality is seen. ADRENALS: No significant abnormality is seen. KIDNEYS: Too small to accurately characterize hypoattenuated renal lesion is seen on the left of the superior pole and image 17 that is subcentimeter. Remainder the kidneys enhance and excrete symmetric ally. No hydronephrosis. REPRODUCTIVE ORGANS: Prostate gland is heterogenous containing central zone calcifications. ADENOPATHY: No greater than 1 cm short axis lymph nodes are noted within the abdomen or pelvis. OSSEOUS STRUCTURES: No significant abnormality is seen. BOWEL: Distal esophageal circumferential wall thickening is noted. No surrounding free air. Appendix is retrocecal, air-filled and within normal limits of size. No significant periappendiceal fat stran ding changes are seen. OTHER: No pneumomediastinum and the visualized portions of the mediastinum. IMPRESSION: 1. CIRCUMFERENTIAL WALL THICKENING OF THE DISTAL ESOPHAGUS. NO FREE AIR IS SEEN TO SUGGEST RUPTURE. N O PNEUMOPERITONEUM OR PNEUMOMEDIASTINUM AND THE VISUALIZED PORTIONS OF THE MEDIASTINUM. 2. HEPATIC STEATOSIS.
[2018-04-23] MEDS: POTASSIUM CHLORIDE 10 MEQ in WATER FOR INJECTION 1 100ML.BAG IVPB SCH ×2 (12:29→13:35)
[2018-04-23 13:08] VITALS: BP 114/72; PULSE 57; RESP 15
[2018-04-23] MEDS ORDERED: PANTOPRAZOLE 40 MG/10 ML VIAL IVP SCH (21:00)
== END 2018-04-23 13:30 | disposition left against medical advice (07) ==
LOC: EC 09:48
DX: K92.2 Gastrointestinal hemorrhage, unspecified (principal); R94.31 Abnormal electrocardiogram [ECG] [EKG]; D72.829 Elevated white blood cell count, unspecified; E87.6 Hypokalemia; R74.0 Nonspecific elevation of levels of transaminase and lactic acid dehydrogenase [LDH]; K76.0 Fatty (change of) liver, not elsewhere classified; I45.10 Unspecified right bundle-branch block; J44.9 Chronic obstructive pulmonary disease, unspecified; F41.0 Panic disorder [episodic paroxysmal anxiety]; F17.200 Nicotine dependence, unspecified, uncomplicated; Z79.51 Long term (current) use of inhaled steroids; Z88.0 Allergy status to penicillin; Z88.5 Allergy status to narcotic agent; Z88.6 Allergy status to analgesic agent; Z88.8 Allergy status to other drugs, medicaments and biological substances
CPT/HCPCS: 36415; 71046; 74177; 80053; 82272; 83735; 84484; 85025; 85610; 85730; 86850; 86900; 86901; 93005; 94640; 96361; 96374; 96375; 99285

== ENCOUNTER 2018-04-23 16:27 | Observation (INO) | payer OTHER ==
[2018-04-23] MEDS ORDERED: SODIUM CHLORIDE 0.9% 500 ML 500 ML IV STA (18:36)
[2018-04-23] MEDS ORDERED: NALOXONE 0.4 MG/ML 1 ML VIAL IV PRN (18:38)
[2018-04-23 18:56] LABS: Basophils % (A) 0 %; Eosinophils # (A) 0.1 k/uL (0-0.7); Eosinophils % (A) 1 %; HCT 39.3 % (39.0-53.0); Lymphocytes # (A) 2.9 k/uL (1.0-4.8); Lymphocytes % (A) 20 %; MCHC 32.9 g/dL (31.0-37.0); MCV 91.1 fL (80.0-100.0); Mean Platelet Volume 7.9; Monocytes # (A) 0.8 k/uL (0-1.0); Monocytes % (A) 5 %; Neutrophils # (A) 10.7 k/uL (1.3-7.7); Neutrophils % (A) 73 %; Platelet Count 165 k/uL (150-450); RBC 4.32 m/uL (4.30-5.90); RDW 13.6 % (11.5-15.5); WBC 14.7 k/uL (3.8-10.6)
[2018-04-23 19:02] LABS: ALT 101 U/L (21-72); AST 54 U/L (17-59); Albumin 4.2 g/dL (3.5-5.0); Alkaline Phosphatase 54 U/L (38-126); Anion Gap 10 mmol/L; Blood Urea Nitrogen 19 mg/dL (9-20); Calcium 9.1 mg/dL (8.4-10.2); Carbon Dioxide 28 mmol/L (22-30); Chloride 102 mmol/L (98-107); Glucose 95 mg/dL (74-99); Potassium 3.3 mmol/L (3.5-5.1); Sodium 140 mmol/L (137-145); Total Bilirubin 0.9 mg/dL (0.2-1.3); Total Protein 6.8 g/dL (6.3-8.2)
[2018-04-23 19:07] LABS: Partial Thromboplastin Time 22.4 sec (22.0-30.0); Prothrombin Time 10.6 sec (9.0-12.0)
[2018-04-23] MEDS ORDERED: IPRATROPIUM-ALBUTEROL 3 ML NEB INHALATION PRN (20:25)
--- NOTE | 2018-04-23 20:32 | ED ---
General Adult HPI - General Chief complaint: Recheck/Abnormal Lab/Rx Stated complaint: VOMITING BLOOD, CHEST PAIN, MS PATIENT Time Seen by Provider: 04/23/18 18:24 Source: patient, RN notes reviewed, old records reviewed Mode of arrival: ambulatory Limitations: no limitations - History of Present Illness Initial comments: 47-year-old male patient past medical history of COPD, multiple sclerosis, bipolar disorder presents ED with approximately 2 days of nausea and vomiting. Patient is currently receiving IV steroids the PICC line. Patient reports that he has additionally having hematemesis. Patient reports that this is happened to him the past while receiving steroids. Patient states that he is nauseous today but has not had any emesis. Patient additionally states that he is having some shortness of breath which he feels is at baseline with his copd. patient was seen earlier today and recommended admission, however sign out AGAINST MEDICAL ADVICE to fill prior obligations. Patient who presenting to Hospital for admission for upper GI bleed. Patient states that since he discharged himself he has not had any new complaints, reports he has had some nausea without emesis. Systemic: Pt denies fatigue, myalgia, fever/chills, rash. Pt denies weakness, night sweats, weight loss. Neuro: Pt denies headache, visual disturbances, syncope or pre-syncope. HEENT: Pt denies ocular discharge or irritation, otalgia, rhinorrhea, pharyngitis or notable lymphadenopathy. Cardiopulmonary: Pt denies chest pain, heart palpitations, dyspnea on exertion. : Pt denies dysuria, burning w/ urination, frequency/urgency. Denies new onset urinary or bowel incontinence. MSK: Pt denies myalgia, loss of strength or function in extremities. Neuro: Pt denies new onset weakness, paresthesias. - Related Data Home Medications Medication Instructions Recorded Confirmed Albuterol Inhaler [Ventolin Hfa 1 - 2 puff INHALATION RT-Q6H PRN 07/01/16 Inhaler] Budesonide-Formot 160-4.5 Mcg 2 puff INHALATION RT-DAILY 07/01/16 04/23/18 [Symbicort 160-4.5 Mcg Inhaler] clonazePAM [KlonoPIN] 1 mg PO QID PRN 04/23/18 04/23/18 Allergies Allergy/AdvReac Type Severity Reaction Status Date / Time heparin Allergy Nausea & Verified 04/23/18 19:02 Vomiting morphine Allergy Itching Verified 04/23/18 19:02 Penicillins Allergy Anaphylaxis Verified 04/23/18 19:02 acetaminophen [From [place]] AdvReac BLEEDING Verified 04/23/18 19:02 aspirin AdvReac Vomiting Verified 04/23/18 19:02 hydrocodone [From [place]] AdvReac BLEEDING Verified 04/23/18 19:02 ibuprofen AdvReac BLEEDING Verified 04/23/18 19:02 Review of Systems ROS Statement: Those systems with pertinent positive or pertinent negative responses have been documented in the HPI. ROS Other: All systems not noted in ROS Statement are negative. Past Medical History Past Medical History: COPD, GERD/Reflux, GI Bleed, Osteoarthritis (OA) Additional Past Medical History / Comment(s): ulcers, insomnia. past colon polyps-pbenign, kidney stones,"tremors", "when yonger had an irreg heart beat" history of bipolar disorder, panic disorder, personality disorder. History of Any Multi-Drug Resistant Organisms: None Reported Past Surgical History: Orthopedic Surgery Additional Past Surgical History / Comment(s): egd/colonosocpy, rt shoulder sx, rt x6 arthroscopic sx, lt knee 3 arthrosocopic sx, rt hand reconstruction, bronchoscopy Past Anesthesia/Blood Transfusion Reactions: No Reported Reaction Additional Past Anesthesia/Blood Transfusion Reaction / Comment(s): clausterphobia Past Psychological History: Panic Disorder Smoking Status: Current every day smoker Past Alcohol Use History: Rare Past Drug Use History: Marijuana - Past Family History Mother Family Medical History: No Reported History Father Family Medical History: Coronary Artery Disease (CAD) Additional Family Medical History / Comment(s): heart problems and pacemaker/ aicd Sister(s) Family Medical History: No Reported History Daughter(s) Family Medical History: No Reported History Son(s) Family Medical History: No Reported History General Exam - General Exam Comments Initial Comments: Constitutional: NAD, AOX3, Pt has pleasant affect. HEENT: NC/AT, trachea midline, neck supple, no lymphadenopathy. Posterior pharynx non erythematous, without exudates. External ears appear normal, without discharge. Mucous membranes moist. Eyes PERRLA, EOM intact. There is no scleral icterus. No pallor noted. Cardiopulmonary: RRR, no murmurs, rubs or gallops, no JVD noted. Lungs CTAB in anterior and posterior anderson. No peripheral edema. Abdominal exam: Abdomen soft and non-distended. Abdomen mildly tender to palpation in epigastric region no guarding or rigidity. Bowel sounds active in LLQ. No hepatosplenomegaly. No ecchymosis Neuro: CN II-XII grossly intact. No nuchal rigidity. MSK: No posterior calf tenderness bilaterally, homans sign negative bilaterally. Posterior tibialis and radial pulse +2 bilaterally. Sensation intact in upper and lower extremities. Full active ROM in upper and lower extremities, 5/5 stregnth. Limitations: no limitations Course Vital Signs 04/23/18 04/23/18 04/23/18 17:13 19:13 19:39 Temperature 98.4 F 100.7 F H 98.9 F Pulse Rate 63 51 L Respiratory 18 18 Rate Blood Pressure 116/78 111/76 O2 Sat by Pulse 97 95 Oximetry Medical Decision Making - Medical Decision Making 47-year-old male patient initially presented to ED for upper GI bleed and sign out AGAINST MEDICAL ADVICE return to ED for admission. Patient has had some nausea without emesis however denies any other complaints. Patient vital signs stable. Physical exam displayed some mild epigastric tenderness, did not display any other acute pathology. Repeat laboratory investigations revealed decreased white blood cell count. Coagulation studies within the normal limits. Non-impressive CBC. EKG not concerning for acute ischemia. Patient continues on Protonix, be admitted for upper GI bleed. Case discussed in depth with Dr. Magallon. - Lab Data Result diagrams: 04/23/18 18:39 04/23/18 18:39 Lab Results 04/23/18 04/23/18 04/23/18 Range/Units 18:39 18:39 18:39 WBC 14.7 H (3.8-10.6) k/uL RBC 4.32 (4.30-5.90) m/uL Hgb 13.0 (13.0-17.5) gm/dL Hct 39.3 (39.0-53.0) % MCV 91.1 (80.0-100.0) fL MCH 30.0 (25.0-35.0) pg MCHC 32.9 (31.0-37.0) g/dL RDW 13.6 (11.5-15.5) % Plt Count 165 (150-450) k/uL Neutrophils % 73 % Lymphocytes % 20 % Monocytes % 5 % Eosinophils % 1 % Basophils % 0 % Neutrophils # 10.7 H (1.3-7.7) k/uL Lymphocytes # 2.9 (1.0-4.8) k/uL Monocytes # 0.8 (0-1.0) k/uL Eosinophils # 0.1 (0-0.7) k/uL Basophils # 0.0 (0-0.2) k/uL PT 10.6 (9.0-12.0) sec INR 1.0 (<1.2) APTT 22.4 (22.0-30.0) sec Sodium 140 (137-145) mmol/L Potassium 3.3 L (3.5-5.1) mmol/L Chloride 102 (98-107) mmol/L Carbon Dioxide 28 (22-30) mmol/L Anion Gap 10 mmol/L BUN 19 (9-20) mg/dL Creatinine 0.75 (0.66-1.25) mg/dL Est GFR (CKD-EPI)AfAm >90 (>60 ml/min/1.73 sqM) Est GFR (CKD-EPI)NonAf >90 (>60 ml/min/1.73 sqM) Glucose 95 (74-99) mg/dL Calcium 9.1 (8.4-10.2) mg/dL Total Bilirubin 0.9 (0.2-1.3) mg/dL AST 54 (17-59) U/L ALT 101 H (21-72) U/L Alkaline Phosphatase 54 (38-126) U/L Total Protein 6.8 (6.3-8.2) g/dL Albumin 4.2 (3.5-5.0) g/dL - EKG Data -: EKG Interpreted by Me (and dr magallon) EKG Comments: Ventricular rate 49, [place] interval 170, QRS 112, QT/QTc 434/392. Incomplete right bundle branch block. Disposition Clinical Impression: Upper GI bleed Disposition: ADMITTED IP TO THIS [facility] Condition: Serious Is patient prescribed a controlled substance at d/c from ED?: No Referrals: Cesar Contreras MD [Primary Care Provider] - 1-2 days
--- NOTE | 2018-04-23 20:41 | XR ---
EXAMINATION TYPE: XR chest 2V DATE OF EXAM: 04/23/2018 COMPARISON: Today HISTORY: Pain TECHNIQUE: Frontal and lateral views of the chest are obtained. FINDINGS: Heart and mediastinum are normal. Lungs are clear. Diaphragm is normal. Bony thorax is int act. There are chest leads. IMPRESSION: Normal chest. No change.
[2018-04-23 20:52] LABS: Appearance,Urine Clear (Clear); Bilirubin,Urine Negative (Negative); Blood,Urine Negative (Negative); Color,Urine Yellow; Glucose,Urine (UA) Negative (Negative); Ketones,Urine Negative (Negative); Leukocyte Esterase,Urine Negative (Negative); Nitrite,Urine Negative (Negative); PH, Urine 7.5 (5.0-8.0); Protein,Urine Trace (Negative)
[2018-04-23] MEDS: ONDANSETRON 4 MG/2 ML VIAL IVP PRN (21:33)
[2018-04-24] MEDS: SODIUM CHLORIDE 0.9% 1,000 ML IV SCH ×3 (00:23→17:48)
[2018-04-24] MEDS: PANTOPRAZOLE 40 MG/10 ML VIAL IVP SCH ×2 (00:23→07:31)
[2018-04-24] MEDS: clonazePAM 1 MG TAB PO PRN ×3 (00:23→15:13)
[2018-04-24] MEDS: ONDANSETRON 4 MG/2 ML VIAL IVP PRN ×2 (07:31→20:52)
[2018-04-24 07:42] LABS: Basophils % (A) 0 %; Eosinophils # (A) 0.1 k/uL (0-0.7); Eosinophils % (A) 1 %; HCT 37.7 % (39.0-53.0); HGB 12.6 gm/dL (13.0-17.5); Lymphocytes # (A) 2.9 k/uL (1.0-4.8); Lymphocytes % (A) 31 %; MCH 30.2 pg (25.0-35.0); MCHC 33.3 g/dL (31.0-37.0); MCV 90.7 fL (80.0-100.0); Mean Platelet Volume 7.4; Monocytes # (A) 0.6 k/uL (0-1.0); Monocytes % (A) 6 %; Neutrophils # (A) 5.8 k/uL (1.3-7.7); Neutrophils % (A) 61 %; Platelet Count 165 k/uL (150-450); RBC 4.16 m/uL (4.30-5.90); RDW 13.4 % (11.5-15.5); WBC 9.5 k/uL (3.8-10.6)
[2018-04-24 07:53] LABS: Anion Gap 7 mmol/L; Blood Urea Nitrogen 18 mg/dL (9-20); Calcium 8.4 mg/dL (8.4-10.2); Carbon Dioxide 26 mmol/L (22-30); Chloride 106 mmol/L (98-107); Glucose 100 mg/dL (74-99); Potassium 3.7 mmol/L (3.5-5.1); Sodium 139 mmol/L (137-145)
[2018-04-24] MEDS ORDERED: ALBUTEROL INHALATION PRN (11:26)
[2018-04-24] MEDS ORDERED: LIDOCAINE 1% INJ 10MG/ML (20 ML MDV) ONE (12:40)
[2018-04-24] MEDS ORDERED: PROPOFOL 10 MG/ML 20 ML VIAL IV ONE (12:40)
[2018-04-24] MEDS ORDERED: GLYCOPYRROLATE 0.2 MG/ML 2 ML VIAL ONE (12:40)
[2018-04-24] MEDS ORDERED: MIDAZOLAM 2 MG/2 ML VIAL ONE (12:40)
[2018-04-24] MEDS ORDERED: IV FLUID CONTINUATION 1,000 ML IV ONE (12:40)
--- NOTE | 2018-04-24 12:46 | P.CONS ---
History of Present Illness - Reason for Consult Consult date: 04/24/18 Hematemesis Requesting physician: Alo Ramsay - Chief Complaint Nausea, vomiting, hematemesis - History of Present Illness The patient is a 47-year-old male with past medical history significant for COPD , multiple sclerosis, bipolar disorder who presented to the emergency department with complaints of 2 days of nausea and vomiting. The patient reports that he had been doing dry heaving and noted blood with his vomitus with his first episode of emesis. The patient has been receiving steroid therapy for treatment of his multiple sclerosis. He reports being nauseated prior to episodes of vomiting. At this time he is reporting abdominal pain in the epigastric region as well as his lower abdomen which she describes as constant and severe. He denies any hematochezia or melena. He reports a bowel movement earlier which was normal in color and consistency. He reports that previously he had similar episodes of hematemesis and at that time he was investigated with an upper endoscopy and reports that he believes he was found to have esophageal ulcers at that time. He also reports prior colonoscopies significant for polypectomy. No NSAID use at home and the patient denies any PPI or H2 antagonist therapy. Hemoglobin was found to be 13.0 on presentation. Review of Systems REVIEW OF SYSTEMS: CONSTITUTIONAL: Denies any chills, weight change or fatigue. CARDIOVASCULAR: Denies any chest pain, palpitations high or low blood pressures RESPIRATORY: Denies any shortness of breath, hemoptysis or cough, known history of COPD. GENITOURINARY: No dysuria or hematuria. MUSCULOSKELETAL: No weakness reported. SKIN: Denies any new rashes or lesions, jaundice or pallor. PSYCHIATRIC: Denies any depression or anxiety but positive history of bipolar disorder. NEUROLOGY: Denies headache, denies any new focal deficits. EARS/NOSE/THROAT: No recent hearing change, congestion, nasal discharge or sore throat. EYES: No pain in eyes, discharge or change in vision. GASTROINTESTINAL: As per HPI. Past Medical History Past Medical History: COPD, GERD/Reflux, GI Bleed, Osteoarthritis (OA) Additional Past Medical History / Comment(s): ulcers, insomnia. past colon polyps-pbenign, kidney stones,"tremors", "when yonger had an irreg heart beat" history of bipolar disorder, panic disorder, personality disorder. History of Any Multi-Drug Resistant Organisms: None Reported Past Surgical History: Orthopedic Surgery Additional Past Surgical History / Comment(s): egd/colonosocpy, rt shoulder sx, rt x6 arthroscopic sx, lt knee 3 arthrosocopic sx, rt hand reconstruction, bronchoscopy Past Anesthesia/Blood Transfusion Reactions: No Reported Reaction Additional Past Anesthesia/Blood Transfusion Reaction / Comm: clausterphobia Past Psychological History: Panic Disorder Smoking Status: Current every day smoker Past Alcohol Use History: Rare Additional Past Alcohol Use History / Comment(s): started smoking at age 17 smokes between 1-1.5 ppd Past Drug Use History: Marijuana - Past Family History Mother Family Medical History: No Reported History Father Family Medical History: Coronary Artery Disease (CAD) Additional Family Medical History / Comment(s): heart problems and pacemaker/ aicd Sister(s) Family Medical History: No Reported History Daughter(s) Family Medical History: No Reported History Son(s) Family Medical History: No Reported History Medications and Allergies Home Medications Medication Instructions Recorded Confirmed Type Albuterol Inhaler [Ventolin Hfa 1 - 2 puff INHALATION RT-Q6H PRN 07/01/16 History Inhaler] Budesonide-Formot 160-4.5 Mcg 2 puff INHALATION RT-DAILY 07/01/16 04/23/18 History [Symbicort 160-4.5 Mcg Inhaler] clonazePAM [KlonoPIN] 1 mg PO QID PRN 04/23/18 04/23/18 History Allergies Allergy/AdvReac Type Severity Reaction Status Date / Time heparin Allergy Nausea & Verified 04/23/18 19:02 Vomiting morphine Allergy Itching Verified 04/23/18 19:02 Penicillins Allergy Anaphylaxis Verified 04/23/18 19:02 acetaminophen [From [place]] AdvReac BLEEDING Verified 04/23/18 19:02 aspirin AdvReac Vomiting Verified 04/23/18 19:02 hydrocodone [From [place]] AdvReac BLEEDING Verified 04/23/18 19:02 ibuprofen AdvReac BLEEDING Verified 04/23/18 19:02 Physical Exam Vitals: Vital Signs Temp Pulse Pulse Resp BP BP Pulse Ox 04/24/18 09:29 48 L 04/24/18 09:13 45 L 18 04/24/18 07:00 98.1 F 78 16 109/71 97 04/24/18 00:22 98.7 F 51 L 16 112/65 94 L 04/23/18 22:30 98.9 F 46 L 16 113/71 98 04/23/18 21:36 50 L 18 120/79 96 04/23/18 20:41 98.5 F 60 17 118/73 97 04/23/18 19:39 98.9 F 04/23/18 19:13 100.7 F H 51 L 18 111/76 95 04/23/18 17:13 98.4 F 63 18 116/78 97 Intake and Output 04/23/18 04/24/18 04/24/18 22:59 06:59 14:59 Intake Total 1874 Balance 1874 Intake: Intake, IV Titration 1874 Amount Sodium Chloride 0.9% 1, 875 000 ml @ 125 mls/hr IV . Q8H [facility] Rx#:[id number] Sodium Chloride 0.9% 500 999 ml 500 ml @ 999 mls/hr IV .Q31M [facility] Rx#:[id number] Other: Weight 77.111 kg On physical examination, patient appears comfortable in no apparent distress. HEAD: Normocephalic, atraumatic. EYES: No scleral icterus. No conjunctival injection. MOUTH: No lesions, tongue midline. NECK: Trachea midline, no gross abnormalities. CHEST: Clear to auscultation with no wheezing or rhonchi appreciated. HEART: Regular rate and rhythm. ABDOMEN: Soft, tender to deep palpation in upper and lower abdomen. Bowel sounds are positive. No organomegaly. No guarding or rigidity. EXTREMITIES: No pedal edema. SKIN: No rashes, no jaundice. NEUROLOGIC: Alert and oriented x3. No focal deficits. Results CBC & Chem 7: 04/24/18 07:21 04/24/18 07:21 Labs: Abnormal Lab Results - Last 24 Hours (Table) 04/23/18 04/23/18 04/23/18 Range/Units 18:39 18:39 20:40 WBC 14.7 H (3.8-10.6) k/uL RBC (4.30-5.90) m/uL Hgb (13.0-17.5) gm/dL Hct (39.0-53.0) % Neutrophils # 10.7 H (1.3-7.7) k/uL Potassium 3.3 L (3.5-5.1) mmol/L Glucose (74-99) mg/dL ALT 101 H (21-72) U/L Urine Protein Trace H (Negative) 04/24/18 04/24/18 Range/Units 07:21 07:21 WBC (3.8-10.6) k/uL RBC 4.16 L (4.30-5.90) m/uL Hgb 12.6 L (13.0-17.5) gm/dL Hct 37.7 L (39.0-53.0) % Neutrophils # (1.3-7.7) k/uL Potassium (3.5-5.1) mmol/L Glucose 100 H (74-99) mg/dL ALT (21-72) U/L Urine Protein (Negative) Chest x-ray: report reviewed (Chest x-ray normal with no changes noted.) Assessment and Plan (1) Upper GI bleed Narrative/Plan: Patient presenting with nausea and vomiting productive of blood in the vomit. Temperature hemoglobin of 13 on presentation. No further episodes after presentation to the hospital. He is denying any melena at this time. Differential includes peptic ulcer disease, erosive esophagitis/gastritis, AVM or other etiology. Current Visit: Yes Status: Acute Code(s): K92.2 - GASTROINTESTINAL HEMORRHAGE, UNSPECIFIED SNOMED Code(s): 98138896 (2) Hematemesis Current Visit: No Status: Acute Code(s): K92.0 - HEMATEMESIS SNOMED Code(s ): 3624005 (3) Nausea & vomiting Current Visit: No Status: Acute Code(s): R11.2 - NAUSEA WITH VOMITING, UNSPECIFIED SNOMED Code(s): 91241105 Plan: Supportive care Nothing by mouth Monitor hemoglobin and transfuse as needed Continue Protonix therapy Plan for upper endoscopy for further evaluation Further recommendations pending findings of endoscopy Thank you for allowing us to participate in the care of this patient we will continue to follow
--- NOTE | 2018-04-24 13:02 | P.PCN ---
Date of Procedure: 04/24/18 Description of Procedure: BRIEF HISTORY: The patient is a 47-year-old male with past medical history significant for COPD , multiple sclerosis, bipolar disorder who presented to the emergency department with complaints of 2 days of nausea and vomiting. The patient reports that he had been doing dry heaving and noted blood with his vomitus with his first episode of emesis. The patient has been receiving steroid therapy for treatment of his multiple sclerosis. He reports being nauseated prior to episodes of vomiting. At this time he is reporting abdominal pain in the epigastric region as well as his lower abdomen which she describes as constant and severe. He denies any hematochezia or melena. He reports a bowel movement earlier which was normal in color and consistency. He reports that previously he had similar episodes of hematemesis and at that time he was investigated with an upper endoscopy and reports that he believes he was found to have esophageal ulcers at that time. He also reports prior colonoscopies significant for polypectomy. No NSAID use at home and the patient denies any PPI or H2 antagonist therapy. Hemoglobin was found to be 13.0 on presentation.. PROCEDURE PERFORMED: Esophagogastroduodenoscopy with biopsy. PREOPERATIVE DIAGNOSIS: Hematemesis, nausea and vomiting. ESTIMATED BLOOD LOSS: Minimal. IV sedation per anesthesia. PROCEDURE: After informed consent was obtained, the patient was brought into the endoscopy unit. IV sedation was administered by Anesthesia under continuous monitoring. Initially the Olympus GIF-190 video endoscope was inserted into the mouth. Esophagus intubated without any difficulty. It was gradually advanced into the stomach and duodenum and carefully examined. The bulb and the second part of the duodenum appeared normal. The scope at this time was withdrawn to the stomach, adequately insufflated with air, and upon careful examination, mucosa of the antrum, body, cardia and the fundus appeared normal. The scope was then withdrawn into the esophagus. The GE junction was located at 45 cm from the incisors. The patient had a 10 cm segment of LA grade D ulcerative esophagitis in the lower esophagus extending to the GE junction. Biopsies of the lower esophagus were taken. The patient tolerated the procedure well. IMPRESSION: 1. LA grade D esophagitis, biopsied. 2. No evidence of active bleeding at this time.. RECOMMENDATIONS: The findings of this examination were discussed with the patient in the nursing staff. Okay for full liquid diet tonight and can advance to a GI soft tomorrow if hemoglobin remains stable and patient remains asymptomatic. Continue Protonix twice a day. Will add Carafate 3 times a day. Avoid NSAID medications..
--- NOTE | 2018-04-24 15:15 | PN ---
PROGRESS NOTE DATE OF SERVICE: 04/24/2018 CHIEF COMPLAINT: Hematemesis. HISTORY OF PRESENT ILLNESS: The gentleman was admitted with upper GI bleed. He has had no further vomiting. Vital signs have been stable. He has had no hematemesis or melena. PHYSICAL EXAM: Skin color is good. Chest is clear and cardiac exam is normal. The abdomen is flat, soft, nontender. IMPRESSION: Upper gastrointestinal bleed. PLAN: 1. IV fluids. 2. Keep n.p.o. 3. Gastroenterology consult for endoscopy. MMODL / IJN: [id number] /
[2018-04-24] MEDS: PANTOPRAZOLE 40 MG TABLET PO SCH (17:48)
[2018-04-24] MEDS: SUCRALFATE 1 GM TAB PO SCH (17:48)
--- NOTE | 2018-04-24 18:33 | HP ---
HISTORY AND PHYSICAL CHIEF COMPLAINT: Chest pain, abdominal pain and hematemesis. HISTORY OF PRESENT ILLNESS: This is another admission for this 47-year-old white male who presented to the emergency room with vomiting of blood. He has a history of COPD, multiple sclerosis and bipolar depression. He had been in the ER two days before and then signed out. He came back and was evaluated and was admitted with upper GI bleed. His hemoglobin was normal, as were his vital signs. REVIEW OF SYSTEMS: He has had no syncope, change in vision or hearing, significant neurologic deficits, chest pain, shortness of breath, heart disease, hypertension, murmurs, rheumatic fever, orthopnea, PND, abdominal pain, indigestion, melena, hematochezia, jaundice, liver disease, renal failure, diabetes, etc. Past medical history, family history, and personal and social histories reveal that he is ALLERGIC to HEPARIN, MORPHINE, PENICILLIN, VICODIN, ASPIRIN AND NSAIDS. He is on an albuterol inhaler as well as Symbicort and Klonopin. He is apparently not on anything for MS. The remainder of his history is unremarkable. He does use marijuana and drinks rarely. He does smoke. PHYSICAL EXAMINATION: Blood pressure 116/78, pulse of 51. Oxygen is 97. Temperature is 100.7. GENERAL: He appeared to be well developed, well nourished, slender, with multiple tattoos. Skin color was otherwise normal. Skin was dry. Lymph nodes were not enlarged. Head, ears, eyes, nose, mouth and throat were normal. Neck veins were not distended. Thyroid was not enlarged. Chest was clear. Cardiac exam was normal. The abdomen was flat, soft and nontender without any visceromegaly or masses. Bowel sounds were present. Extremities were normal. Neurologically he was intact. IMPRESSION: 1. Upper gastrointestinal bleed. 2. Multiple sclerosis. 3. Bipolar depression. 4. Chronic obstructive pulmonary disease. PLAN: 1. Bed rest. 2. IV fluids. 3. Frequent monitoring of his vital signs and hemoglobin. 4. GI consult. MMODL / IJN: [id number] /
[2018-04-24 20:07] VITALS: RESP 16
[2018-04-25] MEDS: SODIUM CHLORIDE 0.9% 1,000 ML IV SCH ×2 (00:49→09:20)
[2018-04-25 07:14] VITALS: BP 125/72; PULSE 46; TEMP 97.8
[2018-04-25] MEDS ORDERED: SYMBICORT 160-4.5 MCG INHALER INHALATION SCH (08:00)
[2018-04-25] MEDS: PANTOPRAZOLE 40 MG TABLET PO SCH (09:18)
[2018-04-25] MEDS: SUCRALFATE 1 GM TAB PO SCH ×2 (09:18→12:32)
--- NOTE | 2018-04-25 15:43 | DS ---
DISCHARGE SUMMARY CHIEF COMPLAINT: Upper gastrointestinal bleed. HISTORY OF PRESENT ILLNESS AND PHYSICAL EXAM: The details of this man's history and physical can be found in the initial workup. LABORATORY STUDIES: While he was in the hospital, he had laboratory studies, details of which can be found in the laboratory section of his chart. COURSE IN HOSPITAL: After admission, he was placed on bedrest, started on intravenous fluids, and seen in consultation by Gastroenterology. Endoscopy was done. He was found to have erosive esophagitis. There is no active bleeding nor none while he was in the hospital. It was felt he could go home on the on his regular activity and diet. He will be on Protonix 40 mg once a day along with Carafate 1 gram t.i.d. He will be seen in the office in several days. FINAL DIAGNOSES: 1. Upper gastrointestinal hemorrhage. 2. Erosive esophagitis. 3. Multiple sclerosis. OPERATIONS: Endoscopy. CONSULTATIONS: Gastroenterology. CONDITION: He is improved. MMZENIAL / TUYETN: [id number] /
== END 2018-04-25 13:05 | disposition home or self-care (01) ==
LOC: EC 16:27 → 4SSUR 20:32
PROVIDERS: ADMIT Family Medicine; ATTEND Family Medicine
DX: K92.0 Hematemesis (principal); K22.10 Ulcer of esophagus without bleeding; G35 Multiple sclerosis; J44.9 Chronic obstructive pulmonary disease, unspecified; F31.9 Bipolar disorder, unspecified; Z95.828 Presence of other vascular implants and grafts; K21.0 Gastro-esophageal reflux disease with esophagitis; M19.90 Unspecified osteoarthritis, unspecified site; F60.9 Personality disorder, unspecified; F41.0 Panic disorder [episodic paroxysmal anxiety]; Z87.442 Personal history of urinary calculi; Z86.010 Personal history of colon polyps; Z79.52 Long term (current) use of systemic steroids; Z88.6 Allergy status to analgesic agent; Z88.5 Allergy status to narcotic agent; Z88.0 Allergy status to penicillin; Z88.8 Allergy status to other drugs, medicaments and biological substances; Z82.49 Family history of ischemic heart disease and other diseases of the circulatory system; D72.819 Decreased white blood cell count, unspecified; F17.210 Nicotine dependence, cigarettes, uncomplicated
CPT/HCPCS: 96376; 96375; 96361; 96374; 99285; 36415; 94640; 93005; 88305; 80053; 80048; 85025 ×2; 85610; 85730; 81003; 87040; 71046; 43239; G0378 ×3; J2250; J2405 ×2; J2001; J2704; C9113

== ENCOUNTER → 2018-12-17 | Outpatient (CLI) | payer OTHER ==
[2018-12-17 15:15] LABS: Basophils % (A) 0 %; Eosinophils % (A) 0 %; HCT 43.7 % (39.0-53.0); HGB 13.9 gm/dL (13.0-17.5); Lymphocytes # (A) 0.8 k/uL (1.0-4.8); Lymphocytes % (A) 4 %; MCH 29.6 pg (25.0-35.0); MCHC 31.8 g/dL (31.0-37.0); MCV 93.1 fL (80.0-100.0); Mean Platelet Volume 7.3; Monocytes # (A) 0.3 k/uL (0-1.0); Monocytes % (A) 1 %; Neutrophils # (A) 16.7 k/uL (1.3-7.7); Neutrophils % (A) 94 %; Platelet Count 274 k/uL (150-450); RBC 4.69 m/uL (4.30-5.90); RDW 13.2 % (11.5-15.5); WBC 17.8 k/uL (3.8-10.6)
[2018-12-17 19:02] LABS: African American GFR (CKD) 123.3 (60.0-200.0); Albumin 4.7 g/dL (3.80-4.90); Albumin/Globulin Ratio 2.76 (1.60-3.17); Anion Gap 10.4 mmol/L (4.00-12.00); BUN/Creat Ratio 26.25 Ratio (12.00-20.00); Calcium 9.4 mg/dL (8.7-10.3); Carbon Dioxide 28.6 mmol/L (21.6-31.8); Globulin 1.7 g/dL (1.6-3.3); Potassium 3.8 mmol/L (3.5-5.5); Total Bilirubin 0.4 mg/dL (0.2-1.2); Total Protein 6.4 g/dL (6.2-8.2)
[2018-12-17 19:34] LABS: Vitamin D 25 Hydroxy 14.3 ng/mL (30.0-100.0)
[2018-12-17 20:05] LABS: Hepatitis B Core IgM Non-Reactive (Non-Reactive); Hepatitis B Surface AB- Quant 3.5 mIU/mL; Hepatitis B Surface Antibody Non-Reactive (Non-Reactive); Hepatitis B Surface Antigen Non-Reactive (Non-Reactive)
== END | disposition home or self-care (01) ==
LOC: LABWHC1 13:43
PROVIDERS: ATTEND Nurse Practitioner Acute Care
DX: G35 Multiple sclerosis (principal); E55.9 Vitamin D deficiency, unspecified
CPT/HCPCS: 36415; 80053; 82306; 82607; 85025; 86704; 86705; 86706; 86787; 87340

== ENCOUNTER 2019-01-04 21:26 | Emergency (ER) | payer OTHER ==
[2019-01-04 21:31] VITALS: RESP 18
[2019-01-04] MEDS ORDERED: methylPREDNISolone SOD SUCCI 125 MG/2 ML VIAL IVPB STA (22:20)
[2019-01-04 22:52] LABS: Basophils % (A) 0 %; Eosinophils % (A) 0 %; HCT 40.3 % (39.0-53.0); HGB 13.4 gm/dL (13.0-17.5); Lymphocytes # (A) 0.5 k/uL (1.0-4.8); Lymphocytes % (A) 4 %; MCH 30.6 pg (25.0-35.0); MCHC 33.3 g/dL (31.0-37.0); MCV 91.9 fL (80.0-100.0); Mean Platelet Volume 5.9; Monocytes # (A) 0.2 k/uL (0-1.0); Monocytes % (A) 1 %; Neutrophils # (A) 10.9 k/uL (1.3-7.7); Neutrophils % (A) 94 %; Platelet Count 212 k/uL (150-450); RBC 4.39 m/uL (4.30-5.90); RDW 13.7 % (11.5-15.5); WBC 11.6 k/uL (3.8-10.6)
[2019-01-04 22:57] LABS: ALT 23 U/L (21-72); AST 16 U/L (17-59); African American GFR (CKD) >90 (>60 ml/min/1.73 sqM); Albumin 3.8 g/dL (3.5-5.0); Alkaline Phosphatase 63 U/L (38-126); Anion Gap 9 mmol/L; Blood Urea Nitrogen 23 mg/dL (9-20); Calcium 9.2 mg/dL (8.4-10.2); Carbon Dioxide 26 mmol/L (22-30); Chloride 102 mmol/L (98-107); Glucose 185 mg/dL (74-99); Magnesium 2.1 mg/dL (1.6-2.3); Potassium 4.5 mmol/L (3.5-5.1); Sodium 137 mmol/L (137-145); Total Bilirubin 0.4 mg/dL (0.2-1.3); Total Protein 6.1 g/dL (6.3-8.2)
--- NOTE | 2019-01-04 22:58 | XR ---
EXAMINATION TYPE: XR chest 2V DATE OF EXAM: 01/04/2019 COMPARISON: NONE HISTORY: Hematemesis TECHNIQUE: Frontal and lateral views of the chest are obtained. FINDINGS: Heart and mediastinum are normal. Lungs are clear. Diaphragm is normal. Bony thorax is int act. There are no hilar masses. IMPRESSION: No active cardiopulmonary disease. No change.
[2019-01-04 23:02] LABS: Partial Thromboplastin Time 23.7 sec (22.0-30.0); Prothrombin Time 10.4 sec (9.0-12.0)
--- NOTE | 2019-01-04 23:18 | ED ---
General Adult HPI - General Chief complaint: Neuro Symptoms/Deficit Stated complaint: R Side Numbness Time Seen by Provider: 01/04/19 21:39 Source: patient Mode of arrival: ambulatory Limitations: no limitations - History of Present Illness Initial comments: 48-year-old male patient presents to the emergency department concerned for exacerbation of his multiple sclerosis. Patient states around 2:00 this afternoon he was grocery shopping when he had sudden numbness and tingling to the right arm and right leg. Patient states with this he also developed tightness over his abdomen and chest. States he is having a stabbing sensation to the right foot. Denies any weakness to the arm or leg. Denies headache, blurred vision, double vision. Denies any eye pain. Patient states symptoms are consistent with his usual MS exacerbations. Patient states his last was a few weeks ago and he had to receive IV steroids. States he called his neurologist who recommended he come to the emergency department for evaluation. Patient denies any recent rash, fever, chills, shortness breath, nausea, vomiting, diarrhea, constipation, back pain, dizziness, weakness, hematuria, dysuria, urinary urgency, urinary frequency, headache, visual changes, or any other complaints. - Related Data Home Medications Medication Instructions Recorded Confirmed Albuterol Inhaler [Ventolin Hfa 1 - 2 puff INHALATION RT-Q6H PRN 07/01/16 1 Inhaler] Budesonide-Formot 160-4.5 Mcg 2 puff INHALATION RT-DAILY 07/01/16 01/04/19 [Symbicort 160-4.5 Mcg Inhaler] clonazePAM [KlonoPIN] 1 mg PO QID PRN 04/23/18 01/04/19 Omeprazole 40 mg PO BID 01/04/19 01/04/19 QUEtiapine [SEROquel] 25 mg PO DAILY 01/04/19 01/04/19 QUEtiapine [SEROquel] 50 mg PO HS 01/04/19 01/04/19 Previous Rx's Medication Instructions Recorded Sucralfate [Carafate] 1 gm PO AC-TID #90 tab 04/25/18 Allergies Allergy/AdvReac Type Severity Reaction Status Date / Time heparin Allergy Nausea & Verified 01/04/19 22:29 Vomiting morphine Allergy Itching Verified 10/28/19 22:29 Penicillins Allergy Anaphylaxis Verified 01/04/19 22:29 acetaminophen [From [place]] AdvReac BLEEDING Verified 01/04/19 22:29 aspirin AdvReac Vomiting Verified 01/04/19 22:29 hydrocodone [From [place]] AdvReac BLEEDING Verified 01/04/19 22:29 ibuprofen AdvReac BLEEDING Verified 01/04/19 22:29 Review of Systems ROS Statement: Those systems with pertinent positive or pertinent negative responses have been documented in the HPI. ROS Other: All systems not noted in ROS Statement are negative. Past Medical History Past Medical History: COPD, GERD/Reflux, GI Bleed, Musculoskeletal Disorder, Osteoarthritis (OA) Additional Past Medical History / Comment(s): MS,ulcers, insomnia. past colon polyps-pbenign, kidney stones,"tremors", "when yonger had an irreg heart beat" history of bipolar disorder, panic disorder, personality disorder. History of Any Multi-Drug Resistant Organisms: None Reported Past Surgical History: Orthopedic Surgery Additional Past Surgical History / Comment(s): egd/colonosocpy, rt shoulder sx, rt x6 arthroscopic sx, lt knee 3 arthrosocopic sx, rt hand reconstruction, bronchoscopy Past Anesthesia/Blood Transfusion Reactions: No Reported Reaction Additional Past Anesthesia/Blood Transfusion Reaction / Comment(s): clausterphobia Past Psychological History: Panic Disorder Smoking Status: Current every day smoker Past Alcohol Use History: Rare Past Drug Use History: Marijuana - Past Family History Mother Family Medical History: No Reported History Father Family Medical History: Coronary Artery Disease (CAD) Additional Family Medical History / Comment(s): heart problems and pacemaker /aicd Sister(s) Family Medical History: No Reported History Daughter(s) Family Medical History: No Reported History Son(s) Family Medical History: No Reported History General Exam Limitations: no limitations General appearance: alert, in no apparent distress, other (This is a well- developed, well-nourished adult male patient in no acute distress. Vital signs upon presentation are temperature 97.8F, pulse 76, respirations 18, blood press ure 112/62, pulse ox 99% on room air.) Eye exam: Present: normal appearance, PERRL, EOMI. Absent: scleral icterus, conjunctival injection, periorbital swelling ENT exam: Present: normal exam, normal oropharynx, mucous membranes moist Respiratory exam: Present: normal lung sounds bilaterally. Absent: respiratory distress, wheezes, rales, rhonchi, stridor Cardiovascular Exam: Present: regular rate, normal rhythm, normal heart sounds. Absent: systolic murmur, diastolic murmur, rubs, gallop, clicks GI/Abdominal exam: Present: soft, normal bowel sounds. Absent: distended, tenderness, guarding, rebound, rigid Neurological exam: Present: alert, oriented X3, CN II-XII intact Expanded Speech: Present: fluid speech Cranial nerves: EOM's Intact: Normal, Nystagmus: Normal, Facial Sensation: N ormal Cerebellar function: Finger to Nose: Normal Motor strength exam: RUE: 5, LUE: 5, RLE: 5, LLE: 5 Eye Response: (4) open spontaneously Motor Response: (6) obeys commands Verbal Response: (5) oriented Steph Total: 15 Psychiatric exam: Present: normal affect, normal mood Skin exam: Present: warm, dry, intact, normal color. Absent: rash Course Vital Signs 01/04/19 21:28 Temperature 97.8 F Pulse Rate 76 Respiratory 18 Rate Blood Pressure 112/62 O2 Sat by Pulse 99 Oximetry EKG Findings - EKG Comments: EKG Findings:: EKG obtained at 2258 shows normal sinus rhythm with a ventricular rate of 76, GA interval 170, QRS duration 90, QT 360, QTC 405. No evidence of ST elevation or depression. Medical Decision Making - Medical Decision Making 48-year-old male patient presented to the emergency department today for evaluation of right-sided numbness and tingling. Is also reporting some chest pressure and abdominal pressure. States symptoms are consistent with his usual MS exacerbation. Physical examination is unremarkable. He is neurologically intact with no focal deficits. EKG showed normal sinus rhythm. Labs reviewed and were unremarkable. Troponin negative. Patient is given IV dose of Solu-Me drol here in the emergency department. Current recommendations are for discharge with oral methylprednisolone 500 mg daily for 5 days. We will give prescription for this. He is instructed to follow-up with his primary care physician and his neurologist for further evaluation as soon as possible. R eturn parameters were discussed in detail. He verbalizes understanding and agrees with this plan. - Lab Data Result diagrams: 01/04/19 22:40 01/04/19 22:40 Lab Results 01/04/19 01/04/19 01/04/19 Range/Units 22:40 22:40 22:40 WBC 11.6 H (3.8-10.6) k/uL RBC 4.39 (4.30-5.90) m/uL Hgb 13.4 (13.0-17.5) gm/dL Hct 40.3 (39.0-53.0) % MCV 91.9 (80.0-100.0) fL MCH 30.6 (25.0-35.0) pg MCHC 33.3 (31.0-37.0) g/dL RDW 13.7 (11.5-15.5) % Plt Count 212 (150-450) k/uL Neutrophils % 94 % Lymphocytes % 4 % Monocytes % 1 % Eosinophils % 0 % Basophils % 0 % Neutrophils # 10.9 H (1.3-7.7) k/uL Lymphocytes # 0.5 L (1.0-4.8) k/uL Monocytes # 0.2 (0-1.0) k/uL Eosinophils # 0.0 (0-0.7) k/uL Basophils # 0.0 (0-0.2) k/uL PT 10.4 (9.0-12.0) sec INR 1.0 (<1.2) APTT 23.7 (22.0-30.0) sec Sodium 137 (137-145) mmol/L Potassium 4.5 (3.5-5.1) mmol/L Chloride 102 (98-107) mmol/L Carbon Dioxide 26 (22-30) mmol/L Anion Gap 9 mmol/L BUN 23 H (9-20) mg/dL Creatinine 0.81 (0.66-1.25) mg/dL Est GFR (CKD-EPI)AfAm >90 (>60 ml/min/1.73 sqM) Est GFR (CKD-EPI)NonAf >90 (>60 ml/min/1.73 sqM) Glucose 185 H (74-99) mg/dL Calcium 9.2 (8.4-10.2) mg/dL Magnesium 2.1 (1.6-2.3) mg/dL Total Bilirubin 0.4 (0.2-1.3) mg/dL AST 16 L (17-59) U/L ALT 23 (21-72) U/L Alkaline Phosphatase 63 (38-126) U/L Troponin I (0.000-0.034) ng/mL Total Protein 6.1 L (6.3-8.2) g/dL Albumin 3.8 (3.5-5.0) g/dL 01/04/19 Range/Units 22:40 WBC (3.8-10.6) k/uL RBC (4.30-5.90) m/uL Hgb (13.0-17.5) gm/dL Hct (39.0-53.0) % MCV (80.0-100.0) fL MCH (25.0-35.0) pg MCHC (31.0-37.0) g/dL RDW (11.5-15.5) % Plt Count (150-450) k/uL Neutrophils % % Lymphocytes % % Monocytes % % Eosinophils % % Basophils % % Neutrophils # (1.3-7.7) k/uL Lymphocytes # (1.0-4.8) k/uL Monocytes # (0-1.0) k/uL Eosinophils # (0-0.7) k/uL Basophils # (0-0.2) k/uL PT (9.0-12.0) sec INR (<1.2) APTT (22.0-30.0) sec Sodium (137-145) mmol/L Potassium (3.5-5.1) mmol/L Chloride (98-107) mmol/L Carbon Dioxide (22-30) mmol/L Anion Gap mmol/L BUN (9-20) mg/dL Creatinine (0.66-1.25) mg/dL Est GFR (CKD-EPI)AfAm (>60 ml/min/1.73 sqM) Est GFR (CKD-EPI)NonAf (>60 ml/min/1.73 sqM) Glucose (74-99) mg/dL Calcium (8.4-10.2) mg/dL Magnesium (1.6-2.3) mg/dL Total Bilirubin (0.2-1.3) mg/dL AST (17-59) U/L ALT (21-72) U/L Alkaline Phosphatase (38-126) U/L Troponin I <0.012 (0.000-0.034) ng/mL Total Protein (6.3-8.2) g/dL Albumin (3.5-5.0) g/dL - Radiology Data Radiology results: report reviewed, image reviewed Two-view x-ray of the chest is obtained. Report was reviewed in its entirety. Impression by Dr. Santiago shows no active cardiopulmonary disease. No change. Disposition Clinical Impression: Exacerbation of multiple sclerosis Disposition: HOME SELF-CARE Condition: Good Instructions (If sedation given, give patient instructions): Multiple Sclerosis (DC) Additional Instructions: Take medications as directed. Follow-up with your neurologist for recheck as soon as possible. Return to the emergency department immediately for any new, worsening, or concerning symptoms. Is patient prescribed a controlled substance at d/c from ED?: No Referrals: Cristin Urias III, MD [Primary Care Provider] - 1-2 days Time of Disposition: 00:13
[2019-01-05 00:37] VITALS: BP 118/69; PULSE 79; TEMP 98
== END 2019-01-05 00:37 | disposition home or self-care (01) ==
LOC: EEVIPCON 21:26 → EC 21:26
DX: G35 Multiple sclerosis (principal); R20.0 Anesthesia of skin; R07.89 Other chest pain; R10.9 Unspecified abdominal pain; J44.9 Chronic obstructive pulmonary disease, unspecified; K21.9 Gastro-esophageal reflux disease without esophagitis; F41.0 Panic disorder [episodic paroxysmal anxiety]; M19.90 Unspecified osteoarthritis, unspecified site; F31.9 Bipolar disorder, unspecified; F17.200 Nicotine dependence, unspecified, uncomplicated; Z79.51 Long term (current) use of inhaled steroids; Z79.899 Other long term (current) drug therapy; Z88.8 Allergy status to other drugs, medicaments and biological substances; Z88.5 Allergy status to narcotic agent; Z88.0 Allergy status to penicillin; Z88.6 Allergy status to analgesic agent; Z87.19 Personal history of other diseases of the digestive system; Z87.442 Personal history of urinary calculi
CPT/HCPCS: 36415; 93005; 80053; 82607; 83735; 84484; 85025; 85610; 85730; 82306; 71046; 99284; 96365; J2930

== ENCOUNTER → 2020-07-20 | Outpatient (CLI) | payer OTHER ==
--- NOTE | 2020-07-20 15:53 | XR ---
EXAMINATION TYPE: XR chest 2V DATE OF EXAM: 07/20/2020 COMPARISON: 01/04/19 HISTORY: Chest pain TECHNIQUE: Frontal and lateral views of the chest are obtained. FINDINGS: There is no focal air space opacity. No evidence for pneumothorax. No pleural effusion. The cardiac silhouette size is within normal limits. The osseous structures are grossly intact. IMPRESSION: 1. No acute cardiopulmonary process.
== END | disposition home or self-care (01) ==
LOC: RADXRMAIN 15:17
PROVIDERS: ATTEND Family Medicine
DX: R07.9 Chest pain, unspecified (principal)
CPT/HCPCS: 71046

== ENCOUNTER → 2021-08-21 | Outpatient (CLI) | payer OTHER ==
[2021-08-21 18:23] LABS: Basophils # (A) 0.07 X 10*3/uL (0.00-0.10); Basophils % (A) 0.7 %; Eosinophils # (A) 0.05 X 10*3/uL (0.04-0.35); Eosinophils % (A) 0.5 %; HCT 44.6 % (39.6-50.0); HGB 14.3 g/dL (13.0-17.0); Immature Grans, Automated 0.5 %; Lymphocytes # (A) 1.98 X 10*3/uL (0.90-5.00); Lymphocytes % (A) 18.6 %; MCH 29.5 pg (27.0-32.0); MCHC 32.1 g/dL (32.0-37.0); MCV 92.1 fL (80.0-97.0); Mean Platelet Volume 11.3 fL (9.5-12.2); Monocytes # (A) 0.66 X 10*3/uL (0.20-1.00); Monocytes % (A) 6.2 %; NRBC Per 100 WBC 0 /100 WBCS (0.0-0.0); Neutrophils # (A) 7.83 X 10*3/uL (1.80-7.70); Neutrophils % (A) 73.5 %; Platelet Count 242 X 10*3/uL (140-440); RBC 4.84 X 10*6/uL (4.40-5.60); RDW 13.6 % (11.5-14.5); WBC 10.64 X 10*3/uL (4.50-10.00)
[2021-08-21 18:29] LABS: ALT 11 U/L (10-49); AST 14 U/L (14-35); African American GFR (CKD) 113.2 (60.0-200.0); Albumin 4.6 g/dL (3.8-4.9); Albumin/Globulin Ratio 2.54 (1.60-3.17); Alkaline Phosphatase 101 U/L (41-126); BUN/Creat Ratio 16.89 Ratio (12.00-20.00); Blood Urea Nitrogen 15.4 mg/dL (9.0-27.0); Calcium 9.2 mg/dL (8.7-10.3); Carbon Dioxide 27.1 mmol/L (20.0-27.5); Chloride 103 mmol/L (96-109); Globulin 1.8 g/dL (1.6-3.3); Glucose 112 mg/dL (70-110); Non-African American GFR(CKD) 97.7 (60.0-200.0); Potassium 4.5 mmol/L (3.5-5.5); Sodium 140 mmol/L (135-145); Total Bilirubin <0.15 mg/dL (0.30-1.20); Total Protein 6.4 g/dL (6.2-8.2)
== END | disposition home or self-care (01) ==
LOC: LABWHC1 13:12
PROVIDERS: ATTEND Nurse Practitioner Acute Care
DX: E55.9 Vitamin D deficiency, unspecified (principal); E53.9 Vitamin B deficiency, unspecified; G35 Multiple sclerosis; R53.83 Other fatigue
CPT/HCPCS: 36415; 80053; 82306; 82607; 84207; 85025

== ENCOUNTER → 2021-11-05 | Outpatient (CLI) | payer OTHER ==
--- NOTE | 2021-11-05 12:13 | CTL ---
EXAMINATION TYPE: CT Low Dose Lung DATE OF EXAM ORDERED: 11/05/2021 COMPARISON: None HISTORY: . Low Dose CT Lung Screening CT DLP: 95.[address] CTDI: 2.50 mGy IV CONTRAST USED: None. SCREENING VISIT: First visit COMPARISON: None. TECHNIQUE: Low dose computed tomography scan was performed through the chest at 1 millimeter thick se ctions and reconstructed images in the coronal plane at [address] DIAGNOSTIC QUALITY: Satisfactory FINDINGS: LUNG NODULES: Not presentLeft lung: no nodules identified.Right lung: no nodules identified. LUNGS: COPD: Severity: Moderate emphysematous changes seen. Fibrosis: Severity:None Lymph nodes: None Other findings: None RIGHT PLEURAL SPACE: Effusion: None Calcification: None Thickening: None Pneumothorax: None LEFT PLEURAL SPACE: Effusion: None Calcification: None Thickening: None Pneumothorax: None HEART: Heart Size: Mildly enlarged Coronary calcification: Mild Pericardial effusion: None OTHER FINDINGS: Upper abdomen: No significant abnormality Bony thorax: Degenerative changes Supraclavicular region: No significant abnormalityOther: No significant abnormalityI IMPRESSION: No pulmonary nodules identified. FOLLOW UP CT CHEST RECOMMENDATION: Follow-up screening in one year CT LUNG RAD: LUNG RAD CATEGORY 1 negative
== END | disposition home or self-care (01) ==
LOC: RADCTMAIN 11:37
PROVIDERS: ATTEND Family Medicine
DX: Z12.2 Encounter for screening for malignant neoplasm of respiratory organs (principal); Z87.891 Personal history of nicotine dependence
CPT/HCPCS: 71271

== ENCOUNTER → 2022-11-06 | Outpatient (CLI) | payer OTHER ==
--- NOTE | 2022-11-06 13:45 | CTL ---
EXAMINATION TYPE: CT Low Dose Lung DATE OF EXAM ORDERED: 11/06/2022 HISTORY: Z12.2,F17.210. Current smoker, 32 pack year history. Lung cancer screening CT DLP: [address] CTDI: 1.84 mGy Automated exposure control for dose reduction was used. SCREENING VISIT: Follow-up COMPARISON: CT low-dose lung cancer screening 11/05/2021 TECHNIQUE: Low dose computed tomography scan was performed through the chest at 1 mm thick sections a nd reconstructed images in multiple planes at 1 mm and [address] DIAGNOSTIC QUALITY: Satisfactory FINDINGS: LUNG NODULES: Left upper lobe 3 mm pulmonary nodule (series 4, image 61). Right upper lobe 2 mm pulmo nary nodule (series 4, image 85). No new or enlarging pulmonary nodules. LUNGS: COPD: Severity: Mild centrilobular and paraseptal emphysematous changes. Fibrosis: Severity: None Lymph nodes: None Other findings: None RIGHT PLEURAL SPACE: Effusion: None Calcification: None Thickening: Mild apical thickening Pneumothorax: None LEFT PLEURAL SPACE: Effusion: None Calcification: None Thickening: Mild apical thickening. Pneumothorax: None HEART: Heart Size: Mildly Enlarged Coronary Calcification: Mild Pericardial Effusion: None OTHER FINDINGS: Upper abdomen: None Bony thorax: None Supraclavicular region: None Other: None IMPRESSION: 1. Stable bilateral pulmonary nodules measuring up to 3 mm. No new or enlarging pulmonary nodules. 2. Mild COPD changes. CT LUNG RAD AND CT CHEST RECOMMENDATION: Lung-Rad 2 Benign Appearance or Behavior: Continue annual sc reening with LDCT in 12 months. S Modifier (other clinically significant findings): None
== END | disposition home or self-care (01) ==
LOC: RADCTMAIN 12:59
PROVIDERS: ATTEND Family Medicine
DX: Z12.2 Encounter for screening for malignant neoplasm of respiratory organs (principal); F17.210 Nicotine dependence, cigarettes, uncomplicated; R91.8 Other nonspecific abnormal finding of lung field; J44.9 Chronic obstructive pulmonary disease, unspecified
CPT/HCPCS: 71271

== ENCOUNTER → 2024-08-24 | Outpatient (CLI) | payer OTHER ==
--- NOTE | 2024-08-24 08:40 | US ---
EXAMINATION TYPE: US kidneys/renal and bladder DATE OF EXAM: 08/24/2024 COMPARISON: CT 2019 CLINICAL INDICATION: Male, 54 years old with history of [id number] CKD STAGE 3A; TECHNIQUE: Grayscale imaging of the bilateral kidneys and urinary bladder: FINDINGS: EXAM MEASUREMENTS: Right Kidney: 10.0 x 4.0 x 5.1 cm Left Kidney: 10.8 x 5.0 x 5.1 cm Post Void Residual Volume: 8.2 mL Right Kidney: fullness of renal pelvis Left Kidney: fullness of renal pelvis, 1.7cm hypoechoic area superior pole Bladder: debris seen Bilateral Jets seen: no Normal Post Void Residual: yes IMPRESSION: 1. No evidence for acute process. 2. Small postvoid residual 8.2 mL [facility], , 08/24/2024 8:37 AM
== END | disposition home or self-care (01) ==
LOC: RADUSWWP 08:08
PROVIDERS: ATTEND Internal Medicine
DX: N18.31 Chronic kidney disease, stage 3a (principal); R39.198 Other difficulties with micturition
CPT/HCPCS: 76770